=== PATIENT | female | born 1960 | race Caucasian/White ===

== ENCOUNTER 2023-03-08 18:20 | Inpatient (IN) | payer OTHER ==
--- NOTE | 2023-03-08 19:21 | ED ---
Altered Mental Status HPI - General Chief Complaint: Altered Mental Status Stated Complaint: AMS Time Seen by Provider: 03/08/23 18:59 Source: patient, EMS Mode of arrival: EMS Limitations: altered mental status - History of Present Illness Initial Comments: 62-year-old female who does admit to have any history of bipolar disorder who is brought in by family after she was found stumbling around her house and demonstrated confusion. She apparently taken a combination of tramadol along with Ambien around 12 noon today and this occurred shortly thereafter. Upon arrival here the patient was more cogent and awake. He does admit that she has had thoughts of hurting herself. She states she has been in [place] from [place] she had an irregular house because of black mold. She states she takes a tramadol because of chronic pain. She did state that she took the medications at 12 noon hoping she can awake up as a different person tomorrow. She also asked if there was treatment facility in the area for her addiction included tramadol Ambien sugar and salt MD Complaint: altered mental status - Related Data Allergies Allergy/AdvReac Type Severity Reaction Status Date / Time diphenhydramine Allergy Hallucinati Verified 03/08/23 19:21 [From Benadryl] ons Review of Systems ROS Statement: Those systems with pertinent positive or pertinent negative responses have been documented in the HPI. ROS Other: All systems not noted in ROS Statement are negative. 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 Limitations: altered mental status General appearance: alert, in no apparent distress Head exam: Present: atraumatic, normocephalic, normal inspection Eye exam: Present: normal appearance, PERRL, EOMI. Absent: scleral icterus, conjunctival injection, periorbital swelling ENT exam: Present: normal exam, mucous membranes moist Neck exam: Present: normal inspection. Absent: tenderness, meningismus, ly mphadenopathy Respiratory exam: Present: normal lung sounds bilaterally. Absent: respiratory distress, wheezes, rales, rhonchi, stridor Cardiovascular Exam: Present: regular rate, normal rhythm, normal heart sounds. Absent: systolic murmur, diastolic murmur, rubs, gallop, clicks GI/Abdominal exam: Present: soft, normal bowel sounds. Absent: distended, tenderness, guarding, rebound, rigid Extremities exam: Present: normal inspection, full ROM, normal capillary refill. Absent: tenderness, pedal edema, joint swelling, calf tenderness Back exam: Present: normal inspection Neurological exam: Present: alert, oriented X3, CN II-XII intact Psychiatric exam: Present: depressed, flat affect Skin exam: Present: warm, dry, intact, normal color. Absent: rash Course Vital Signs 03/08/23 18:24 Temperature 97.2 F L Pulse Rate 104 H Respiratory 18 Rate Blood Pressure 139/71 O2 Sat by Pulse 98 Oximetry - Reevaluation(s) Reevaluation #1: 03/08/23 20:13 The patient's care will be endorsed to Dr. Hamlin at our shift change Medical Decision Making - Lab Data Lab Results 03/08/23 Range/Units 19:32 Coronavirus (PCR) Not Detected (Not Detectd) Disposition Referrals: None,Stated [Primary Care Provider] - 1-2 days
[2023-03-08 20:02] LABS: ALT 30 U/L (4-34); AST 40 U/L (14-36); African American GFR (CKD) >90 (>60 ml/min/1.73 sqM); Albumin 3.9 g/dL (3.5-5.0); Alkaline Phosphatase 69 U/L (38-126); Anion Gap 9 mmol/L; Blood Urea Nitrogen 12 mg/dL (7-17); C Reactive Protein <0.5 mg/dL (<1.0); Calcium 8.6 mg/dL (8.4-10.2); Carbon Dioxide 21 mmol/L (22-30); Chloride 107 mmol/L (98-107); Creatine Kinase 69 U/L (30-135); Magnesium 1.8 mg/dL (1.6-2.3); Non-African American GFR(CKD) >90 (>60 ml/min/1.73 sqM); Potassium 3.6 mmol/L (3.5-5.1); Sodium 137 mmol/L (137-145); Total Bilirubin 0.8 mg/dL (0.2-1.3); Total Protein 6.7 g/dL (6.3-8.2)
[2023-03-08 20:23] LABS: Glucose 114 mg/dL (74-99)
[2023-03-08 21:24] LABS: Amphetamine Screen,Urine Not Detected (NotDetected); Barbiturate Screen,Urine Not Detected (NotDetected); Benzodiazepines Screen,Urine Not Detected (NotDetected); Cocaine Screen,Urine Not Detected (NotDetected); Methadone Screen, Urine Not Detected (NotDetected); Opiate Screen,Urine Not Detected (NotDetected); Oxycodone Screen, Urine Not Detected (NotDetected); Phencyclidine Screen,Urine Not Detected (NotDetected); Tricyclic Antidepressant,Urine Not Detected (NotDetected); Urn Cannabinoid Scrn Detected (NotDetected)
[2023-03-08 22:31] LABS: Basophils % (A) 0 %; Eosinophils # (A) 0.1 k/uL (0-0.7); Eosinophils % (A) 1 %; HCT 37.1 % (34.0-46.0); HGB 12.2 gm/dL (11.4-16.0); Lymphocytes % (A) 20 %; MCH 29.5 pg (25.0-35.0); MCHC 32.9 g/dL (31.0-37.0); MCV 89.7 fL (80.0-100.0); Mean Platelet Volume 7.6; Monocytes # (A) 0.2 k/uL (0-1.0); Monocytes % (A) 3 %; Neutrophils # (A) 3.6 k/uL (1.3-7.7); Neutrophils % (A) 74 %; Platelet Count 166 k/uL (150-450); RBC 4.14 m/uL (3.80-5.40); RDW 14.3 % (11.5-15.5); WBC 4.8 k/uL (3.8-10.6)
[2023-03-09] MEDS ORDERED: LORazepam 2 MG/ML INJ IV PRN
[2023-03-09] MEDS ORDERED: ACETAMINOPHEN TAB 325 MG TAB ONE (02:04)
[2023-03-09] MEDS ORDERED: LORazepam 1 MG TAB PO PRN ×2 (05:26→05:41)
[2023-03-09] MEDS ORDERED: ACETAMINOPHEN TAB 325 MG TAB PO PRN (05:26)
[2023-03-09] MEDS ORDERED: LORazepam 2 MG/ML INJ IM PRN ×2 (05:26)
[2023-03-09] MEDS ORDERED: HALOPERIDOL LACTATE 5 MG/ML 1 ML VIAL IM PRN ×2 (05:26)
[2023-03-09] MEDS ORDERED: IBUPROFEN 600 MG TAB PO PRN (05:26)
[2023-03-09] MEDS ORDERED: MAGNESIUM HYDROXIDE 2,400 MG/30 ML CUP PO PRN (05:26)
[2023-03-09] MEDS ORDERED: MAG HYDROX/AL HYDROX/SIMETH 30 ML CUP PO PRN (05:26)
[2023-03-09] MEDS ORDERED: haloperidoL 5 MG TAB PO PRN ×2 (05:29)
[2023-03-09] MEDS ORDERED: metFORMIN 500 MG TAB PO SCH (05:30)
[2023-03-09] MEDS ORDERED: ONDANSETRON 4 MG TAB PO PRN (05:30)
[2023-03-09] MEDS ORDERED: traMADol 50 MG TAB PO PRN (05:34)
[2023-03-09 06:18] VITALS: TEMP 96.8
[2023-03-09] MEDS ORDERED: NICOTINE 14MG/24HR PATCH TRANSDERM SCH (09:00)
[2023-03-09] MEDS: THYROID, PORK 30 MG TAB PO SCH (09:05)
--- NOTE | 2023-03-09 11:54 | P.HP ---
Psychiatric H&P - . H&P Date: 03/09/23 History & Physical: Allergies Allergy/AdvReac Type Severity Reaction Status Date / Time diphenhydramine Allergy Hallucinati Verified 03/08/23 19:21 From Benadryl ons Vital Signs Temp 96.8 F L 03/09/23 06:16 Pulse 69 03/09/23 06:16 Resp 18 03/09/23 06:16 BP 177/89 03/09/23 06:16 Pulse Ox 98 03/09/23 06:16 FiO2 Intake & Output 03/08/23 03/09/23 03/09/23 18:59 06:59 18:59 Weight 65.771 kg 65.227 kg 65.227 kg Laboratory Last Values WBC 4.8 k/uL (3.8-10.6) 03/08/23 22:09 RBC 4.14 m/uL (3.80-5.40) 03/08/23 22:09 Hgb 12.2 gm/dL (11.4-16.0) 03/08/23 22:09 Hct 37.1 % (34.0-46.0) 03/08/23 22:09 MCV 89.7 fL (80.0-100.0) 03/08/23 22:09 MCH 29.5 pg (25.0-35.0) 03/08/23 22:09 MCHC 32.9 g/dL (31.0-37.0) 03/08/23 22:09 RDW 14.3 % (11.5-15.5) 03/08/23 22:09 Plt Count 166 k/uL (150-450) 03/08/23 22:09 MPV 7.6 03/08/23 22:09 Neutrophils % 74 % 03/08/23 22:09 Lymphocytes % 20 % 03/08/23 22:09 Monocytes % 3 % 03/08/23 22:09 Eosinophils % 1 % 03/08/23 22:09 Basophils % 0 % 03/08/23 22:09 Neutrophils # 3.6 k/uL (1.3-7.7) 03/08/23 22:09 Lymphocytes # 1.0 k/uL (1.0-4.8) 03/08/23 22:09 Monocytes # 0.2 k/uL (0-1.0) 03/08/23 22:09 Eosinophils # 0.1 k/uL (0-0.7) 03/08/23 22:09 Basophils # 0.0 k/uL (0-0.2) 03/08/23 22:09 Sodium 137 mmol/L (137-145) 03/08/23 19:32 Potassium 3.6 mmol/L (3.5-5.1) 03/08/23 19:32 Chloride 107 mmol/L (98-107) 03/08/23 19:32 Carbon Dioxide 21 mmol/L (22-30) L 03/08/23 19:32 Anion Gap 9 mmol/L 03/08/23 19:32 BUN 12 mg/dL (7-17) 03/08/23 19:32 Creatinine 0.67 mg/dL (0.52-1.04) 03/08/23 19:32 Est GFR (CKD-EPI)AfAm >90 (>60 ml/min/1.73 sqM) 03/08/23 19:32 Est GFR (CKD-EPI)NonAf >90 (>60 ml/min/1.73 sqM) 03/08/23 19:32 Glucose 114 mg/dL (74-99) H 03/08/23 19:32 Calcium 8.6 mg/dL (8.4-10.2) 03/08/23 19:32 Magnesium 1.8 mg/dL (1.6-2.3) 03/08/23 19:32 Total Bilirubin 0.8 mg/dL (0.2-1.3) 03/08/23 19:32 AST 40 U/L (14-36) H 03/08/23 19:32 ALT 30 U/L (4-34) 03/08/23 19:32 Alkaline Phosphatase 69 U/L (38-126) 03/08/23 19:32 Ammonia 10 umol/L (<30) 03/08/23 19:32 Creatine Kinase 69 U/L (30-135) 03/08/23 19:32 C-Reactive Protein <0.5 mg/dL (<1.0) 03/08/23 19:32 Total Protein 6.7 g/dL (6.3-8.2) 03/08/23 19:32 Albumin 3.9 g/dL (3.5-5.0) 03/08/23 19:32 Urine Opiates Screen Not Detected (NotDetected) 03/08/23 20:30 Ur Oxycodone Screen Not Detected (NotDetected) 03/08/23 20:30 Urine Methadone Screen Not Detected (NotDetected) 03/08/23 20:30 Ur Propoxyphene Screen Not Detected (NotDetected) 03/08/23 20:30 Ur Barbiturates Screen Not Detected (NotDetected) 03/08/23 20:30 U Tricyclic Antidepress Not Detected (NotDetected) 03/08/23 20:30 Ur Phencyclidine Scrn Not Detected (NotDetected) 03/08/23 20:30 Ur Amphetamines Screen Not Detected (NotDetected) 03/08/23 20:30 U Methamphetamines Scrn Not Detected (NotDetected) 03/08/23 20:30 U Benzodiazepines Scrn Not Detected (NotDetected) 03/08/23 20:30 Urine Cocaine Screen Not Detected (NotDetected) 03/08/23 20:30 U Marijuana (THC) Screen Detected (NotDetected) H 03/08/23 20:30 Coronavirus (PCR) Not Detected (Not Detectd) 03/08/23 19:32 03/09/23 11:18 IDENTIFYING DATA: Patient is a 62-year-old female, currently lives with her granddaughter in a house, she has 3 kids HPI: Patient presented to the hospital yesterday was brought in by her family as they were complaining the patient was stumbling around her house, confused. It was found out that patient had overdosed on Ambien and tramadol. Patient was also endorsing suicidal thoughts earlier. Patient apparently had moved recently from [place] to [place], due to "black mold" in her house. Her urine drug screen was positive for THC. Patient was seen today on the unit and admitted voluntarily last night, she was agreeable to speak to com writer in the office today. Patient was fairly pleasant during her conversation today. She claims that she was "hurting really badly in all my joints" and states that she wanted it to stop. She states that this is usually related to her consuming sugar. She states that when she doesn't consume sugar she feels a lot better and does not have any mood or joint issues. 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 She claims that she took 2 ambiens and one tramadol to help her sleep and states that she wanted to feel better the next day. She denies it being a suicide attempt. She states that she just wanted to sleep. She claims that she started to crave sugar since she realized that there was "black mold" in her old home in [place] while she was ripping up the carpet. She claims that she got "dementia after that" and states that she found it hard to concentrate on her work. She claimed that she is mainly been seeking holistic treatment on the [facility] for the black mold exposure. She states that her health problems are likely related to it. She states that her sleep has been on and off and has been taking Ambien, she also has a fair appetite. She claims that she is not looking to take medications and adamantly refused any at this time and mainly asked com writer if there is any "medications to help control my sugar intake". Vehicle Upholsterer explained the different medications that may be able to help her however no medications are indicated for helping sugar cravings. She is denying any paranoia at this time. She is denying any suicidal or homicidal ideations intent or plan. At this time patient denies any auditory or visual hallucinations. Patient denies any flight of ideas racing thoughts and increased in goal directed behavior. Patient admits to using no recreational drugs cigarettes or marijuana. PAST PSYCHIATRIC HISTORY: Patient states that she has no previous mental health history. Patient denies being on any psychiatric medications. Patient denies any previous psychiatric hospitalizations. Patient denies any psychiatric outpatient follow-up. He did claim that she is seeing several therapists in the past when she lived in [place]. She claims that she attempted to overdose on aspirin when she was a teenager and admitted today was "mostly for attention". 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 She claims that she was in a family that moved around a lot. She states that she completed high school and did some college. 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 She states that she has no legal history never been to half-way or detention. MENTAL STATUS EXAM: General Appearance: Patient appears to have a nose ring, wearing hospital gown, stated age is alert, directable, and attempts to cooperate. Patient appears to have fair hygiene and grooming. Behavior: Patient is seated without any agitated behavior. mildly bizarre at times. cooperative Speech: Patient's speech is fluent and nonpressured. Mood/Affect: Patient reports their mood is "ok now", affect is congruent Suicidality/Homicidality: Patient denies having any homicidal ideation intent or plan. Denies any suicidal ideations intent or plan Perceptions: Patient denies any visual hallucinations and denies any auditory hallucinations Though content/process: There is no evidence of any delusional thought content and thought process is linear and goal-directed. focused on her health and treatment of a "sugar addiction". Memory and concentration: AOX3, grossly intact for the purposes of this session. Can spell "WORLD" backwards Judgment and insight: poor STRENGTHS/WEAKNESSES: strength is that patient is resilient. Weakness is that patient has poor insight and refusing to take treamtent/meds. INTELLECT: average IMPRESSIONS: Adjustment disorder r/o schizotypal personality disorder vs delusional disorder PLAN: -Patient is admitted under voluntary status to MHU for stabilization of psychiatric symptoms and safety. Patient has not signed medication consent and is placed in patient's chart. -Medications : com writer discussed different options for medications/treamtnet and patient is refusing at this time and wants a more hollistic treatment and also help with her "sugar craving". There is not sufficient criteria for petitioning and certifying her at this time. -SW to reach out to grand daughter for further collateral and also safety check on home envt including guns/weapons. -Ativan and Haldol PRN for agitation/aggression -Internal Medicine consult to perform medical evaluation and physical. -NRT - not needed as patient does not smoke -SW on board for discharge planning. Encourage patient to participate in groups to work on coping skills. 03/09/23 11:41
[2023-03-09 13:04] LABS: Appearance,Urine Clear (Clear); Bilirubin,Urine Negative (Negative); Blood,Urine Negative (Negative); Color,Urine Colorless; Glucose,Urine (UA) Negative (Negative); Ketones,Urine Negative (Negative); Leukocyte Esterase,Urine Small (Negative); Nitrite,Urine Negative (Negative); PH, Urine 6.5 (5.0-8.0); Protein,Urine Negative (Negative); RBC,Urine <1 /hpf (0-5); Specific Gravity,Urine 1.002 (1.001-1.035); Urobilinogen,Urine <2.0 mg/dL (<2.0); WBC,Urine <1 /hpf (0-5)
--- NOTE | 2023-03-09 17:07 | P.CONS ---
History of Present Illness - Reason for Consult Consult date: 03/09/23 - History of Present Illness Patient is a 62-year-old female with past medical history of hypothyrodism, hypertension, prediabetes mellitus, dyslipidemia presenting to the ED for mental health concerns. He's been admitted to the mental health unit for further management of his symptoms. [facility] has been consulted for medical management of this patient. Patient reports previous exposure to black mold that led her to develop hypertension, Tami's thyroiditis, prediabetes mellitus, COPD and dyslipidemia. Her symptoms have gone away after she was taken away from that exposure. Patient has no complaints today. General: non toxic, no distress, appears at stated age Derm: warm, dry Head: atraumatic, normocephalic, symmetric Eyes: EOMI, no lid lag, anicteric sclera Cardiovascular: S1S2 reg, no murmur Lungs: CTA bilateral, no rhonchi, no rales , no accessory muscle use Ext: no gross muscle atrophy, no edema, no contractures Neuro: CN II-XI grossly intact, no focal neuro deficits Psych: Alert, oriented, appropriate affect Tami's thyroiditis Pre-diabetes mellitus Dyslipidemia Hypertension Elevated AST Based on my assessment of this patient, this patient meets a moderate complexity level of care. Patient has a chronic diagnosis of hypothyrodism, hypertension, prediabetes mellitus, dyslipidemia. Hypothyroidism: Restart Towner thyroid 120 mg PO QD. TSH ordered. Pre-DM: Follow hemoglobin A1c. HLD: Patient states that she takes cholestyramine 4 g PO BID. HTN: Patient states this is diet controlled. I have reviewed the following mergers and acquisitions consultant notes: I have reviewed the results of the following tests: CBC, CMP, UA, UDS, COVID 19. I have ordered the following tests: Agree with Hemoglobin A1c, lipid panel and TSH ordered by psychiatry. 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 History of Any Multi-Drug Resistant Organisms: None Reported Past Surgical History: Section, Orthopedic Surgery Past Psychological History: Anxiety, Bipolar, Depression Smoking Status: Never smoker Past Alcohol Use History: Rare Past Drug Use History: None Reported Medications and Allergies Home Medications Medication Instructions Recorded Confirmed Type Cephalexin [Keflex] 500 mg PO DIRECTED 03/08/23 03/08/23 History Cholestyramine/Aspartame 4 gm PO DAILY 03/08/23 03/08/23 History [Cholestyramine Light Packet] Estradiol Cream [Estrace Cream 1 applic VAGINAL HS 03/08/23 03/08/23 History 0.01%] Ondansetron [Zofran] 4 mg PO Q6H PRN 03/08/23 03/08/23 History Thyroid,Pork [Towner Thyroid] 120 mg PO DAILY 03/08/23 03/08/23 History Zolpidem [Ambien] 5 mg PO DIRECTED PRN 03/08/23 03/08/23 History Zolpidem [Ambien] 10 mg PO HS PRN 03/08/23 03/08/23 History metFORMIN HCL 500 mg PO DIRECTED 03/08/23 03/08/23 History traMADol HCL 50 mg PO DAILY 03/08/23 03/08/23 History Allergies Allergy/AdvReac Type Severity Reaction Status Date / Time diphenhydramine Allergy Hallucinati Verified 03/08/23 19:21 [From Geraldo] ons Physical Exam Vitals: Vital Signs Temp Pulse Pulse Resp BP BP Pulse Ox 03/09/23 06:16 96.8 F L 69 18 177/89 98 03/08/23 18:24 97.2 F L 104 H 18 139/71 98 Intake and Output 03/09/23 03/09/23 03/09/23 06:59 14:59 22:59 Other: Weight 65.227 kg 65.227 kg Results CBC & Chem 7: 03/08/23 22:09 03/08/23 19:32 Labs: Abnormal Lab Results - Last 24 Hours (Table) 03/08/23 03/08/23 03/09/23 Range/Units 19:32 20:30 11:00 Carbon Dioxide 21 L (22-30) mmol/L Glucose 114 H (74-99) mg/dL AST 40 H (14-36) U/L Ur Leukocyte Esterase Small H (Negative) U Marijuana (THC) Screen Detected H (NotDetected)
[2023-03-09] MEDS ORDERED: ESTRADIOL 0.1 MG/GM VAGINAL CREAM 42.5 GM TUBE VAGINAL SCH (21:00)
[2023-03-09] MEDS: CHOLESTYRAMINE (WITH SUGAR) 4 GM PACKET PO SCH (21:48)
[2023-03-10] MEDS: THYROID, PORK 30 MG TAB PO SCH (10:05)
--- NOTE | 2023-03-10 10:17 | P.DS ---
Providers Date of admission: 03/09/23 01:27 Expected date of discharge: 03/10/23 Attending physician: Anthony Leonard MD Consults: 03/09/23 05:26 Consult Physician Routine Consulting Provider: Rosa Abdalla Consult Reason/Comments: medical H& P Do you want consulting provider notified?: Yes Primary care physician: Stated None - Discharge Diagnosis(es) (1) Adjustment disorder Current Visit: Yes Status: Acute Priority: High Hospital Course: Admission HPI: Admission note was completed by life insurance underwriter "Patient is a 62-year-old female, currently lives with her granddaughter in a house, she has 3 kids. Patient presented to the hospital yesterday was brought in by her family as they were complaining the patient was stumbling around her house, confused. It was found out that patient had overdosed on Ambien and tramadol. Patient was also endorsing suicidal thoughts earlier. Patient apparently had moved recently from [place] to [place], due to "black mold" in her house. Her urine drug screen was positive for THC. Patient was seen today on the unit and admitted voluntarily last night, she was agreeable to speak to life insurance underwriter in the office today. Patient was fairly pleasant during her conversation today. She claims that she was "hurting really badly in all my joints" and states that she wanted it to stop. She states that this is usually related to her consuming sugar. She states that when she doesn't consume sugar she feels a lot better and does not have any mood or joint issues. 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 She claims that she took 2 ambiens and one tramadol to help her sleep and states that she wanted to feel better the next day. She denies it being a suicide attempt. She states that she just wanted to sleep. She claims that she started to crave sugar since she realized that there was "black mold" in her old home in [place] while she was ripping up the carpet. She claims that she got "dementia after that" and states that she found it hard to concentrate on her work. She claimed that she is mainly been seeking holistic treatment on the [facility] for the black mold exposure. She states that her health problems are likely related to it. She states that her sleep has been on and off and has been taking Ambien, she also has a fair appetite. She claims that she is not looking to take medications and adamantly refused any at this time and mainly asked life insurance underwriter if there is any "medications to help control my sugar intake". [employer] S[employer] S[employer] Developer explained the different medications that may be able to help her however no medications are indicated for helping sugar cravings. She is denying any paranoia at this time. She is denying any suicidal or homicidal ideations intent or plan. At this time patient denies any auditory or visual hallucinations. Patient denies any flight of ideas racing thoughts and increased in goal directed behavior. Patient admits to using no recreational drugs cigarettes or marijuana." Hospital course: Upon admission to the unit patient was directable and agreeable to commence treatment and signed adult voluntary form . Patient got along well with other patients on the unit and followed unit protocol, she did not exhibit any concerning behaviros or issues while on the unit and attempted to participate in groups and melieu. Patient was adamant about not starting medications and wanted to only seek therapy. patient did not have sufficient criteria to go ahead with involuntary process at this time. Patient spoke of her stressors and engaged in therapy both group and individual. Patient was also seen by medical team for history and physical exam. Throughout the course of the hospitalization patient gradually improved with regards to mood, anxiety, sleep and returned back to their baseline level of functioning. On the day of discharge patient denied any suicidal or homicidal ideations intent or plan denied any auditory or visual hallucinations. Patient endorsed wanting to live for her health and family. The patient denied any access to guns or weapons. Patient denied any paranoia and did not endorse any delusions. Patient does not have a significant history of substance abuse and was counseled on abstaining from all substances including alcohol and marijuana. Patient was also counseled on the medications and need for regular compliance and was encouraged to follow-up with their outpatient appointment for mental health and also for primary care. Prior to discharge a family meeting will be arranged by social worker school to answer any questions and ensure safety upon discharge. Mental status exam: General Appearance: Patient appears to be stated age is alert, pleasant, and cooperative. Patient is in no acute distress and has improved hygiene and grooming Behavior: Patient is calmly seated without any agitated behavior. Speech: Patient's speech is fluent and nonpressured. Mood/Affect: Patient reports their mood is "good", affect is congruent Suicidality/Homicidality: Patient denies having any suicidal or homicidal ideation intent or plan. Perceptions: Patient denies any auditory or visual hallucinations. Though content/process: There is no evidence of any delusional thought content and thought process is linear and goal-directed. more future oriented. emphasis on her pain, somatic sx and also "sugar addiction". Memory and concentration: AOX3, grossly intact for the purposes of this session. Can spell "WORLD" backwards correctly. Judgment and insight: improved with guarded prognosis Impression: Adjustment disorder Rule out schizotypal personality disorder versus delusional disorder? Plan: -Continue with discharge today as patient has improved and stabilized psychiatrically and is not currently an imminent threat to herself and/or others. Patient will remain at chronically elevated risk for harm to self and/or others due to her impulsivity. -Continue medications: Patient was adamant about not starting any psychotropic medications at this time and wanted to proceed with therapy only. we discussed the risks and drawbacks to this and patient wanted to avoid pharmacotherapy and preferred hollistic treatment instead -Patient was counseled on the need for follow-up at mental health and also primary care for medical issues. Patient verbalized understanding and agreed. -Social work to arrange for and conduct family meeting to ensure safety upon discharge and answer any questions/concerns and also to ensure a safe envt at home with no guns or weapons. Social work also to arrange for patients follow up appointments for psychiatric care along with follow up with primary care provider. -Patient counseled on abstaining from recreational drugs and marijuana and alcohol. Was informed/educated on the adverse effects on their physical and mental health. Patient verbally agreed and understood. -Patient was instructed to return to the hospital or seek immediate medical care if their psychiatric or medical symptoms do worsen or reoccur. Allergies Allergy/AdvReac Type Severity Reaction Status Date / Time diphenhydramine Allergy Hallucinati Verified 03/08/23 19:21 [From Benadryl] ons Laboratory Results WBC 4.8 k/uL (3.8-10.6) 03/08/23 22:09 RBC 4.14 m/uL (3.80-5.40) 03/08/23 22:09 Hgb 12.2 gm/dL (11.4-16.0) 03/08/23 22:09 Hct 37.1 % (34.0-46.0) 03/08/23 22:09 MCV 89.7 fL (80.0-100.0) 03/08/23 22:09 MCH 29.5 pg (25.0-35.0) 03/08/23 22:09 MCHC 32.9 g/dL (31.0-37.0) 03/08/23 22:09 RDW 14.3 % (11.5-15.5) 03/08/23 22:09 Plt Count 166 k/uL (150-450) 03/08/23 22:09 MPV 7.6 03/08/23 22:09 Neutrophils % 74 % 03/08/23 22:09 Lymphocytes % 20 % 03/08/23 22:09 Monocytes % 3 % 03/08/23 22:09 Eosinophils % 1 % 03/08/23 22:09 Basophils % 0 % 03/08/23 22:09 Neutrophils # 3.6 k/uL (1.3-7.7) 03/08/23 22:09 Lymphocytes # 1.0 k/uL (1.0-4.8) 03/08/23 22:09 Monocytes # 0.2 k/uL (0-1.0) 03/08/23 22:09 Eosinophils # 0.1 k/uL (0-0.7) 03/08/23 22:09 Basophils # 0.0 k/uL (0-0.2) 03/08/23 22:09 Sodium 137 mmol/L (137-145) 03/08/23 19:32 Potassium 3.6 mmol/L (3.5-5.1) 03/08/23 19:32 Chloride 107 mmol/L (98-107) 03/08/23 19:32 Carbon Dioxide 21 mmol/L (22-30) L 03/08/23 19:32 Anion Gap 9 mmol/L 03/08/23 19:32 BUN 12 mg/dL (7-17) 03/08/23 19:32 Creatinine 0.67 mg/dL (0.52-1.04) 03/08/23 19:32 Est GFR (CKD-EPI)AfAm >90 (>60 ml/min/1.73 sqM) 03/08/23 19:32 Est GFR (CKD-EPI)NonAf >90 (>60 ml/min/1.73 sqM) 03/08/23 19:32 Glucose 114 mg/dL (74-99) H 03/08/23 19:32 Calcium 8.6 mg/dL (8.4-10.2) 03/08/23 19:32 Magnesium 1.8 mg/dL (1.6-2.3) 03/08/23 19:32 Total Bilirubin 0.8 mg/dL (0.2-1.3) 03/08/23 19:32 AST 40 U/L (14-36) H 03/08/23 19:32 ALT 30 U/L (4-34) 03/08/23 19:32 Alkaline Phosphatase 69 U/L (38-126) 03/08/23 19:32 Ammonia 10 umol/L (<30) 03/08/23 19:32 Creatine Kinase 69 U/L (30-135) 03/08/23 19:32 C-Reactive Protein <0.5 mg/dL (<1.0) 03/08/23 19:32 Total Protein 6.7 g/dL (6.3-8.2) 03/08/23 19:32 Albumin 3.9 g/dL (3.5-5.0) 03/08/23 19:32 Urine Color Colorless 03/09/23 11:00 Urine Appearance Clear (Clear) 03/09/23 11:00 Urine pH 6.5 (5.0-8.0) 03/09/23 11:00 Ur Specific Ramsay 1.002 (1.001-1.035) 03/09/23 11:00 Urine Protein Negative (Negative) 03/09/23 11:00 Urine Glucose (UA) Negative (Negative) 03/09/23 11:00 Urine Ketones Negative (Negative) 03/09/23 11:00 Urine Blood Negative (Negative) 03/09/23 11:00 Urine Nitrite Negative (Negative) 03/09/23 11:00 Urine Bilirubin Negative (Negative) 03/09/23 11:00 Urine Urobilinogen <2.0 mg/dL (<2.0) 03/09/23 11:00 Ur Leukocyte Esterase Small (Negative) H 03/09/23 11:00 Urine RBC <1 /hpf (0-5) 03/09/23 11:00 Urine WBC <1 /hpf (0-5) 03/09/23 11:00 Urine Opiates Screen Not Detected (NotDetected) 03/08/23 20:30 Ur Oxycodone Screen Not Detected (NotDetected) 03/08/23 20:30 Urine Methadone Screen Not Detected (NotDetected) 03/08/23 20:30 Ur Propoxyphene Screen Not Detected (NotDetected) 03/08/23 20:30 Ur Barbiturates Screen Not Detected (NotDetected) 03/08/23 20:30 U Tricyclic Antidepress Not Detected (NotDetected) 03/08/23 20:30 Ur Phencyclidine Scrn Not Detected (NotDetected) 03/08/23 20:30 Ur Amphetamines Screen Not Detected (NotDetected) 03/08/23 20:30 U Methamphetamines Scrn Not Detected (NotDetected) 03/08/23 20:30 U Benzodiazepines Scrn Not Detected (NotDetected) 03/08/23 20:30 Urine Cocaine Screen Not Detected (NotDetected) 03/08/23 20:30 U Marijuana (THC) Screen Detected (NotDetected) H 03/08/23 20:30 Coronavirus (PCR) Not Detected (Not Detectd) 03/08/23 19:32 Vital Signs Temp 96.8 F L 03/09/23 06:16 Pulse 69 03/09/23 06:16 Resp 18 03/09/23 06:16 BP 177/89 03/09/23 06:16 Pulse Ox 98 03/09/23 06:16 FiO2 Intake & Output 03/09/23 03/10/23 03/10/23 18:59 06:59 18:59 Weight 65.227 kg Patient Condition at Discharge: Stable Plan - Discharge Summary Discharge Rx Participant: Yes New Discharge Prescriptions: Continue Thyroid,Pork [[place] Thyroid] 120 mg PO DAILY 30 Days #30 traMADol HCL 50 mg PO DAILY Cholestyramine/Aspartame [Cholestyramine Light Packet] 4 gm PO DAILY 30 Days #30 packet Discontinued Zolpidem [Ambien] 5 mg PO DIRECTED PRN PRN Reason: Insomnia Ondansetron [Zofran] 4 mg PO Q6H PRN PRN Reason: Nausea metFORMIN HCL 500 mg PO DIRECTED Zolpidem [Ambien] 10 mg PO HS PRN PRN Reason: Insomnia Cephalexin [Keflex] 500 mg PO DIRECTED Discharge Medication List traMADol HCL 50 mg PO DAILY 03/08/23 [History] Cholestyramine/Aspartame [Cholestyramine Light Packet] 4 gm PO DAILY 30 Days #30 packet 03/10/23 [Rx] Thyroid,Pork [[place] Thyroid] 120 mg PO DAILY 30 Days #30 03/10/23 [Rx] Follow up Appointment(s)/Referral(s): [facility] [NON-STAFF] - 1 Week Patient Instructions/Handouts: Mood Disorders (DC) Activity/Diet/Wound Care/Special Instructions: Avoid the use of street drugs and alcohol. Take all medications as prescribed. When you are in need of refills on your medications, please contact your medical provider and/or outpatient psychiatrist to have this done. Please go to scheduled outpatient appointments for aftercare treatment. If symptoms return or become worse, call the crisis line at and/or go to the nearest emergency room for evaluation. Discharge Disposition: HOME SELF-CARE
[2023-03-10 10:43] VITALS: BP 136/80; PULSE 72; RESP 20
[2023-03-10] MEDS: CHOLESTYRAMINE (WITH SUGAR) 4 GM PACKET PO SCH (10:43)
[2023-03-10 16:43] LABS: Chol/HDL Ratio 3.33 Ratio; LDL Cholesterol,Calculated 215.5 mg/dL (0.0-131.0); VLDL Calculation 17.46 mg/dL (5.00-40.00)
== END 2023-03-10 17:38 | disposition home or self-care (01) | DRG 882 ==
LOC: EC 18:20 → 3MHU 03-09 01:27
PROVIDERS: ADMIT Psychiatry & Neurology Psychiatry; ATTEND Psychiatry & Neurology Psychiatry
DX: F43.22 Adjustment disorder with anxiety (principal); T42.6X2A Poisoning by other antiepileptic and sedative-hypnotic drugs, intentional self-harm, initial encounter; Z77.120 Contact with and (suspected) exposure to mold (toxic); Z79.84 Long term (current) use of oral hypoglycemic drugs; Z87.891 Personal history of nicotine dependence; R73.03 Prediabetes; E78.5 Hyperlipidemia, unspecified; E06.3 Autoimmune thyroiditis; J44.9 Chronic obstructive pulmonary disease, unspecified; I10 Essential (primary) hypertension; G89.29 Other chronic pain; F31.9 Bipolar disorder, unspecified; Z28.310 Unvaccinated for COVID-19; Z28.21 Immunization not carried out because of patient refusal; Z79.899 Other long term (current) drug therapy
CPT/HCPCS: 36415; 80053; 80061; 80076; 80306; 81001; 82075; 82140; 82550; 83036; 83735; 84443; 85025; 86140; 87635

== ENCOUNTER → 2024-07-19 | Outpatient (CLI) | payer MEDICARE, OTHER ==
[2024-07-19 10:56] VITALS: BP 147/84; PULSE 94; RESP 16
--- NOTE | 2024-07-23 07:40 | P.PAINPG ---
Objective - Vital Signs Vital signs: Intake & Output 07/18/24 07/19/24 07/19/24 18:59 06:59 18:59 Weight 53.07 kg PQRS Measure Charge Sheet Comment: HISTORY OF PRESENT ILLNESS: A 64 yr old female as a referral from Dr Munguia presents today w severe and chronic lower abdominal pain secondary to ovarian CA for evaluation. Pt states pain level is provoked at 6 /10 in intensity, constant, localized in the lower quadrants of the abdomen, sore in character w occasional shooting pain towards the pelvis. Pain is provoked by sugar/ carbohydrate intake. Pain is alleviated by physician guided home stretches daily since May 2024, heat, ice, medications (Dilaudid, Tramadol), repositioning and rest . PMH: Grade III-IV Ovarian CA, OA, Deepak's Thyroiditis, MDD/ Anxiety/ Bipolar PSH: C- Section, Orthopedic Surgery SH: Former tobacco user, Rare ETOH use, Hx Cannabis use FH: Non contributory All: See list Meds: See list REVIEW OF ORGAN SYSTEMS: CONSTITUTIONAL: No fevers or chills. No recent weight loss. NEUROLOGICAL: + numbness and tingling along the distal extremities. No seizure disorders or headaches. MUSCULOSKELETAL: + pain PSYCHIATRIC: Denies current depression or suicidal thoughts. Physical Examinations : Constitutional : Cooperative , not in acute distress . Neurologic : Cranial nerve II to XII intact. No focal neurological deficits. Psychiatric : alert & oriented x 3. Matching mood & appropriate affect. Judgment & insight intact. Musculoskeletal : +RLQ/ LLQ TTP Cervical Spine Motor strength in the deltoid and biceps: Normal right side. Normal Left side Motor strength biceps and the wrist extensors: Normal right side . Normal left side Motor strength in the triceps muscle: Normal right side. Normal left side Deep tendon reflexes: Normal at the biceps. Normal at Brachioradialis. Normal at triceps Vertebral body tenderness to deep palpation over Cervical facet loading test: positive bilaterally Spurling test: positive bilaterally Neck distraction test: positive bilaterally Abdulaziz sign: positive bilaterally Lumbar spine Motor strength lower extremities ,thigh and legs 5/5 Right side , 5/5 Left side Deep tendon reflexes : Normal Knee Jerk. Normal Ankle Jerk Vertebral body tenderness over Ortiz Test positive Lumbar facet Loading Test: positive Right / positive Left Range of motion of the lumbar spine Flexion 30 degrees, extension 10 degrees Straight Leg Raise test: Left/ Right positive at degrees Van test: positive right / positive left. Severe tenderness over the Sacroiliac joint on the Right / Left sides Gaenslen test: positive bilaterally Seated flexion test: positive bilaterally. 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 Opiate/ narcotic agreement signed 07/19/24. Dilaudid 2mg #90 w 1 RF. Use, side effects, adverse reactions, safe storage discussed. All questions answered. I have spent greater than 30 minutes on patient care today. Dr Goodwin was available by phone for the evaluation of this patient. The time was used to review the medical records including relevant urine studies and Prescription history (MAPs), review of the available imaging, evaluation and examination of the patient, coordination of care with the medical staff and if applicable referring physicians, as well as creation of the medical record - Pain Location Generalized Non-Pharmacological Interventions: Heat Pharmacological Interventions: Scheduled Medication Home Medications: Ambulatory Orders traMADol HCL 50 mg PO DAILY 03/08/23 Cholestyramine/Aspartame [Cholestyramine Light Packet] 4 gm PO DAILY 30 Days #30 packet 03/10/23 Thyroid,Pork [P[place] Thyroid] 120 mg PO DAILY 30 Days #30 03/10/23 HYDROmorphone [Dilaudid] 07/19/24 Controlled Substance Measures - Controlled Substance Measures Is patient prescribed a controlled substance at discharge?: Yes When asked, does pt state using other controlled substances?: Yes If prescribed controlled substance>3 days was MAPS reviewed?: Yes If Rx opioid, was Start Talking consent form obtained?: Yes Was information provided regarding opioid addiction?: Yes
== END ==
LOC: PNWHC3 10:14
PROVIDERS: ATTEND Specialist
DX: C56.9 Malignant neoplasm of unspecified ovary (principal); Z87.891 Personal history of nicotine dependence; Z88.8 Allergy status to other drugs, medicaments and biological substances
CPT/HCPCS: 99202

== ENCOUNTER → 2024-09-10 | Outpatient (CLI) | payer MEDICARE, OTHER ==
[2024-09-10 14:32] VITALS: BP 114/75; PULSE 85; RESP 16; TEMP 97.1
--- NOTE | 2024-09-10 14:55 | P.PAINPG ---
PQRS Measure Charge Sheet Comment: HISTORY OF PRESENT ILLNESS: A 64 yr old female w "nephew" at side presents today w severe and chronic lower abdominal pain secondary to ovarian CA for medication refills. Pt states pain level is provoked at 8 /10 in intensity, constant, localized in the lower quadrants of the abdomen, sharp in character w occasional shooting pain towards the pelvis. Pain is provoked by movement, lack of Vitamin C infusions, increasing ascites and LE edema. Pain is alleviated by physician guided home stretches daily since May 2024, heat, ice, medications, repositioning and rest . Interventional procedures include Medications include Dilaudid 2mg , Tramadol REVIEW OF ORGAN SYSTEMS: CONSTITUTIONAL: No fevers or chills. No recent weight loss. +R abd drain tube in place NEUROLOGICAL: + numbness and tingling along the distal extremities. No seizure disorders or headaches. MUSCULOSKELETAL: + pain PSYCHIATRIC: Denies current depression or suicidal thoughts. Physical Examinations : Constitutional : Cooperative , not in acute distress . 3+ BLE Edema Neurologic : Cranial nerve II to XII intact. No focal neurological deficits. Psychiatric : alert & oriented x 3. Matching mood & appropriate affect. Judgment & insight intact. Musculoskeletal : +RLQ/ LLQ TTP Cervical Spine Motor strength in the deltoid and biceps: Normal right side. Normal Left side Motor strength biceps and the wrist extensors: Normal right side . Normal left side Motor strength in the triceps muscle: Normal right side. Normal left side Deep tendon reflexes: Normal at the biceps. Normal at Brachioradialis. Normal at triceps Vertebral body tenderness to deep palpation over Cervical facet loading test: positive bilaterally Spurling test: positive bilaterally Neck distraction test: positive bilaterally Abdulaziz sign: positive bilaterally Lumbar spine Motor strength lower extremities ,thigh and legs 5/5 Right side , 5/5 Left side Deep tendon reflexes : Normal Knee Jerk. Normal Ankle Jerk Vertebral body tenderness over Ortiz Test positive Lumbar facet Loading Test: positive Right / positive Left Range of motion of the lumbar spine Flexion 30 degrees, extension 10 degrees Straight Leg Raise test: Left/ Right positive at degrees Van test: positive right / positive left. Severe tenderness over the Sacroiliac joint on the Right / Left sides Gaenslen test: positive bilaterally Seated flexion test: positive bilaterally. 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 New opiate/ narcotic agreement signed 09/10/24. UDS collected 09/10/24. Dilaudid 2mg #180 w 1 RF. Add Narcan and discussed it's use w nephew. Use, side effects, adverse reactions, safe storage discussed. All questions answered. I have spent greater than 30 minutes on patient care today. Dr Goodwin was available by phone for the evaluation of this patient. The time was used to review the medical records including relevant urine studies and Prescription history (MAPs), review of the available imaging, evaluation and examination of the patient, coordination of care with the medical staff and [facility], as well as creation of the medical record PQRS Narrative: Hx Alcohol Use (MH) No Home Medications: Ambulatory Orders traMADol HCL 50 mg PO DAILY 03/08/23 Cholestyramine/Aspartame [Cholestyramine Light Packet] 4 gm PO DAILY 30 Days #30 packet 03/10/23 Thyroid,Pork [[place] Thyroid] 120 mg PO DAILY 30 Days #30 03/10/23 HYDROmorphone [Dilaudid] 07/19/24 HYDROmorphone [Dilaudid] 2 mg PO TID PRN 30 Days #180 tab 09/10/24 HYDROmorphone [Dilaudid] 2 mg PO TID PRN 30 Days #180 tab 09/10/24 Naloxone HCl [Narcan] 4 mg NASAL ONCE PRN 365 Days #1 each 09/10/24 Controlled Substance Measures - Controlled Substance Measures Is patient prescribed a controlled substance at discharge?: Yes When asked, does pt state using other controlled substances?: Yes If prescribed controlled substance>3 days was MAPS reviewed?: Yes If Rx opioid, was Start Talking consent form obtained?: Yes Was information provided regarding opioid addiction?: Yes
== END ==
LOC: PNWHC3 13:51
PROVIDERS: ATTEND Specialist
DX: C56.9 Malignant neoplasm of unspecified ovary (principal); Z88.8 Allergy status to other drugs, medicaments and biological substances
CPT/HCPCS: 80307; 99212

== ENCOUNTER → 2024-11-12 | Outpatient (CLI) | payer MEDICARE, OTHER ==
[2024-11-12 14:55] VITALS: BP 131/85; PULSE 104; RESP 16; TEMP 96.9
--- NOTE | 2024-11-12 15:35 | P.PAINPG ---
PQRS Measure Charge Sheet Comment: HISTORY OF PRESENT ILLNESS: A 64 yr old female presents today w severe and chronic lower abdominal pain secondary to ovarian CA for medication refills. Pt states pain level is provoked at 8 /10 in intensity, constant, localized in the lower quadrants of the abdomen, sharp in character w occasional shooting pain towards the pelvis. Pain is provoked by movement, lack of Vitamin C infusions (for 3 months), increasing ascites and LE edema. She will have a PET scan to determine if there is lymphatic spread due to immense LE swelling. Pain is alleviated by physician guided home stretches daily since May 2024, heat, ice, medications, use of a walker for ambulatory assistance, repositioning and rest . Interventional procedures include Medications include Dilaudid 2mg , Tramadol REVIEW OF ORGAN SYSTEMS: CONSTITUTIONAL: No fevers or chills. No recent weight loss. +R abd drain tube in place NEUROLOGICAL: + numbness and tingling along the distal extremities. No seizure disorders or headaches. MUSCULOSKELETAL: + pain PSYCHIATRIC: Denies current depression or suicidal thoughts. Physical Examinations : Constitutional : Cooperative , not in acute distress . 3+ BLE Edema Neurologic : Cranial nerve II to XII intact. No focal neurological deficits. Psychiatric : alert & oriented x 3. Matching mood & appropriate affect. Judgment & insight intact. Musculoskeletal : +RLQ/ LLQ TTP Cervical Spine Motor strength in the deltoid and biceps: Normal right side. Normal Left side Motor strength biceps and the wrist extensors: Normal right side . Normal left side Motor strength in the triceps muscle: Normal right side. Normal left side Deep tendon reflexes: Normal at the biceps. Normal at Brachioradialis. Normal at triceps Vertebral body tenderness to deep palpation over Cervical facet loading test: positive bilaterally Spurling test: positive bilaterally Neck distraction test: positive bilaterally Abdulaziz sign: positive bilaterally Lumbar spine Motor strength lower extremities ,thigh and legs 5/5 Right side , 5/5 Left side Deep tendon reflexes : Normal Knee Jerk. Normal Ankle Jerk Vertebral body tenderness over Ortiz Test positive Lumbar facet Loading Test: positive Right / positive Left Range of motion of the lumbar spine Flexion 30 degrees, extension 10 degrees Straight Leg Raise test: Left/ Right positive at degrees Van test: positive right / positive left. Severe tenderness over the Sacroiliac joint on the Right / Left sides Gaenslen test: positive bilaterally Seated flexion test: positive bilaterally. 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 Opiate/ narcotic agreement signed 09/10/24. UDS from 09/10/24 +Opiates and ETOH metabolites. Will recheck UDS 11/12/24. Dilaudid 2mg #180 w 1 RF. Script for lymphatic drainage provided C56, I89.0 . Narcan already added, it's use discussed again. Use, side effects, adverse reactions, safe storage discussed. All questions answered. I have spent greater than 30 minutes on patient care today. Dr Goodwin was available by phone for the evaluation of this patient. The time was used to review the medical records including relevant urine studies and Prescription history (MAPs), review of the available imaging, evaluation and examination of the patient, coordination of care with the medical staff and if applicable referring physicians, as well as creation of the medical record - Pain Location Generalized Non-Pharmacological Interventions: Heat, Ice PQRS Narrative: Hx Alcohol Use (MH) No Home Medications: Ambulatory Orders traMADol HCL 50 mg PO BID PRN 03/08/23 Thyroid,Pork [[place] Thyroid] 120 mg PO DAILY 30 Days #30 03/10/23 Famotidine [Pepcid] 20 mg PO DAILY 10/19/24 Furosemide [Lasix] 20 mg PO DAILY 10/19/24 Levothyroxine Sodium [Synthroid] 75 mcg PO DAILY 10/19/24 Spironolactone [Aldactone] 25 mg PO DAILY 10/19/24 Calcium Carbonate [Tums] 1,000 mg PO TID PRN tab 10/23/24 Lactulose [Cephulac] 20 gm PO BID #360 ml 10/23/24 HYDROmorphone [Dilaudid] 4 mg PO TID PRN 30 Days #180 tab 11/12/24 HYDROmorphone [Dilaudid] 4 mg PO TID PRN 30 Days #180 tab 11/12/24 Controlled Substance Measures - Controlled Substance Measures Is patient prescribed a controlled substance at discharge?: Yes When asked, does pt state using other controlled substances?: Yes If prescribed controlled substance>3 days was MAPS reviewed?: Yes
== END ==
LOC: PNWHC3 14:02
PROVIDERS: ATTEND Specialist
DX: C56.9 Malignant neoplasm of unspecified ovary (principal); I89.0 Lymphedema, not elsewhere classified; Z88.9 Allergy status to unspecified drugs, medicaments and biological substances; Z88.8 Allergy status to other drugs, medicaments and biological substances
CPT/HCPCS: 99212

== ENCOUNTER 2024-11-28 21:07 | Inpatient (IN) | payer MEDICARE, OTHER ==
--- NOTE | 2024-11-28 21:29 | ED ---
General Adult HPI - General Chief complaint: Abdominal Pain Stated complaint: Abdominal Pain Time Seen by Provider: 11/28/24 21:08 Source: patient - History of Present Illness Initial comments: Patient is a 64-year-old past medical past medical history ovarian cancer presenting today for abdominal pain. Patient states she had a drain for ascites placed August 08 at [facility]. Earlier this afternoon she began having sharp and aching abdominal pain in her lower abdomen. States she a lso noticed some discharge around her drain site this morning. Endorses nausea, no emesis. No fevers or chills but notes hot flashes. States this morning she had a oily bowel movement at 1 AM. States it was dark but not black or bloody. Endorses mild dysuria denies hematuria. Endorses vaginal bleeding and discharge that has been ongoing during her treatment of CA. - Related Data Home Medications Medication Instructions Recorded Confirmed traMADol HCL 50 mg PO TID 03/08/23 11/29/24 Famotidine [Pepcid] 20 mg PO DAILY 10/19/24 11/29/24 Furosemide [Lasix] 20 mg PO BID PRN 10/19/24 11/29/24 Spironolactone [Aldactone] 25 mg PO DAILY 10/19/24 11/29/24 Calcium Carbonate [Tums] 500 mg PO DAILY 11/29/24 11/29/24 Cholecalciferol (Vitamin D3) 1,250 mcg PO Q7D 11/29/24 11/29/24 [Vitamin D3 (1250 Mcg = 50,000 Iu)] Cyanocobalamin [Vitamin B-12 1,000 mcg SQ Q7D 11/29/24 11/29/24 Injection] HYDROmorphone [Dilaudid] 4 mg PO TID 11/29/24 11/29/24 Levothyroxine Sodium [Synthroid] 88 mcg PO DAILY 11/29/24 11/29/24 modafiniL [Provigil] 200 mg PO DAILY 11/29/24 11/29/24 Previous Rx's Medication Instructions Recorded Thyroid,Pork [[place] Thyroid] 120 mg PO DAILY 30 Days #30 03/10/23 Lactulose [Cephulac] 20 gm PO BID #360 ml 10/23/24 Allergies Allergy/AdvReac Type Severity Reaction Status Date / Time diphenhydramine Allergy anxiety & Verified 11/29/24 11:44 [From Benadryl] rash zolpidem [From Ambien] AdvReac Hallucinati Verified 11/29/24 11:44 ons Review of Systems ROS Statement: Those systems with pertinent positive or pertinent negative responses have been documented in the HPI. ROS Other: All systems not noted in ROS Statement are negative. Past Medical History Past Medical History: Cancer Additional Past Medical History / Comment(s): tami's disease stage 4 ovarian cancer. History of Any Multi-Drug Resistant Organisms: None Reported Past Surgical History: Section, Cholecystectomy, Orthopedic Surgery, Tonsillectomy Additional Past Surgical History / Comment(s): two tubal , wrist surgery Past Psychological History: Anxiety, Bipolar, Depression Smoking Status: Never smoker Past Alcohol Use History: None Reported Past Drug Use History: None Reported - Past Family History Father Family Medical History: COPD Additional Family Medical History / Comment(s): emphysema, at 82yrs Mother Family Medical History: Cancer, Diabetes Mellitus Additional Family Medical History / Comment(s): breast cancer, at 80yrs from dehydration per patient. General Exam - General Exam Comments Initial Comments: PE: CONSTITUTIONAL: No apparent distress, well appearing SKIN: Warm, dry, no jaundice, hives or petechiae EYES: Pupils are equally round, extraocular movements intact without nystagmus, clear conjunctiva, non-icteric sclera HENT: Normocephalic, atraumatic, moist mucus membranes, oropharynx clear without exudates NECK: , Full range of motion, normal appearance PULMONARY: Clear to auscultation without wheezes, rhonchi, or rales, normal excursion, no accessory muscle use and no stridor CARDIOVASCULAR: Regular rate, rhythm, normal S1 and S2. No appreciated murmurs, rubs or gallops. Strong radial pulses with intact distal perfusion. 2+ pitting edema extending up to thighs GASTROINTESTINAL: Firm, predominantly in the right lower quadrant, active bowel sounds throughout, diffuse tenderness however worse in the right lower quadrant than left, mildly distended, palpable mass in the right lower quadrant, no rebound, guarding throughout GENITOURINARY: MUSCULOSKELETAL: Extremities have no gross deformity NEUROLOGIC:_a/o x 3, GCS 15, normal mentation and speech. Moves all extremities x 4 without motor or sensory deficit PSYCHIATRIC:_normal mood and affect, thought process is clear and linear Course Vital Signs 11/28/24 11/28/24 11/29/24 21:08 22:33 00:00 Temperature 97.9 F Pulse Rate 96 89 Respiratory 18 Rate Blood Pressure 117/75 130/79 126/75 O2 Sat by Pulse 99 99 96 Oximetry 11/29/24 11/29/24 11/29/24 03:32 05:29 06:21 Temperature 97.7 F Pulse Rate 96 87 Respiratory 18 Rate Blood Pressure 116/82 149/93 152/87 O2 Sat by Pulse 98 97 Oximetry 11/29/24 06:50 Temperature 97.8 F Pulse Rate 91 Respiratory 18 Rate Blood Pressure 148/89 O2 Sat by Pulse 99 Oximetry Medical Decision Making - Medical Decision Making Were old charts reviewed (outside hosp., previous admission, EMS record, old EKG, old radiological studies, urgent care reports/EKG's, longterm records)? Report findings @ -Medical records reviewed reviewed report from MRI abdomen done on 10/22/2024, noted significantly limited exam due to mesenteric edema, bowel peristalsis and intra-abdominal fat, showed small volume ascites with mesenteric edema, mild intra and extrahepatic biliary duct dilation due to postcholecystectomy and trace bilateral pleural effusions Differential Diagnosis (chest pain, altered mental status, abdominal pain women, abdominal pain men, vaginal bleeding, weakness, fever, dyspnea, syncope, h eadache, dizziness, GI bleed, back pain, seizure, CVA, palpatations, mental health, musculoskeletal)? Differential Abdominal Pain Women: Appendicitis, Cholecystitis, diverticulosis, ischemic bowel, pancreatitis, hepatitis, UTI, gastroenteritis, AAA, incarcerated hernia, bowel obstruction, constipation, inflammatory bowel, hepatitis, peptic ulcer disease, splenic infarction, perforated viscus, PID, kidney stone, this is not meant to be an all-inclusive list EKG interpreted by me (3pts min.). @ -As above X-rays interpreted by me (1pt min.). @ -None done CT interpreted by me (1pt min.). @ -Personally reviewed CT scan abdomen pelvis, appears to show small bowel wall thickening with air-fluid levels, concerning for small bowel obstruction U/S interpreted by me (1pt. min.). @ -None done What testing was considered but not performed or refused? (CT, X-rays, U/S, labs)? Why? @ -None What meds were considered but not given or refused? Why? @ -None Did you discuss the management of the patient with other professionals (professionals i.e. , VALERIA, [employer], lab, RT, psych nurse, perinatal social worker, scientific informatics leader, teacher, special weapons unit officer, pillowcase folder)? Give summary @Case was discussed with general surgery, Dr. Roldan, , kindly agrees to be on consult for patient, agrees with plan for NG tube Was smoking cessation discussed for >3mins.? @ -No Was critical care preformed (if so, how long)? @ -No Were there social determinants of health that impacted care today? How? (Homelessness, low income, unemployed, alcoholism, drug addiction, transportation, low edu. Level, literacy, decrease access to med. care, usp, rehab)? @ -No Was there de-escalation of care discussed even if they declined (Discuss DNR or withdrawal of care, Hospice)? @ -No What co-morbidities impacted this encounter? (DM, HTN, Smoking, COPD, CAD, Cancer, CVA, ARF, Chemo, Hep., AIDS, mental health diagnosis, sleep apnea, morbid obesity)? @Stage IV ovarian cancer Was patient admitted / discharged? Hospital course, mention meds given and route, prescriptions, significant lab abnormalities, going to OR and other pertinent info. @Admission - This is apleasant 64-year-old female history of stage IV ovarian cancer presenting today for abdominal pain x 1 evening. Patient afebrile on arrival, vital signs within acceptable limits. On my assessment does have firm, diffusely tender abdomen mildly distended with active bowel sounds. Plan for CT abdomen pelvis, small amount of IV fluids, given patient's lower extremity edema, pain control, labs. CT scan shows findings consistent with partial small bowel obstruction. Case was discussed with , he is agreeable with remaining consult the patient admitted here. Given patient is palliative care measures only at this time. NG tube will be placed to low intermittent suction. Updated patient to findings and plan of care. She endorsed some movement pain with Dilaudid however pain is returning. Additional pain control ordered. She is agreeable plan for admission. Case was discussed with Case discussed with BEN Quevedo, kindly accept patient for admission. Undiagnosed new problem with uncertain prognosis? @ -No Drug Therapy requiring intensive monitoring for toxicity (Heparin, Nitro, Insulin, Cardizem)? @ -No Were any procedures done? @ -No Diagnosis/symptom? @Small bowel obstruction Acute, or Chronic, or Acute on Chronic? @Acute Uncomplicated (without systemic symptoms) or Complicated (systemic symptoms)? @Complicated Side effects of treatment? @ -No Exacerbation, Progression, or Severe Exacerbation? @ -No Poses a threat to life or bodily function? How? (Chest pain, USA, PR, pneumonia, PE, COPD, DKA, ARF, appy, cholecystitis, CVA, Diverticulitis, Homicidal, Suicidal, threat to staff... and all critical care pts) Yes if left untreated could result in bowel perforation, septic shock and - Lab Data Result diagrams: 12/02/24 03:17 12/02/24 03:19 Lab Results 11/29/24 11/29/24 11/29/24 Range/Units 00:01 00:01 00:01 WBC 9.5 (3.8-10.6) k/uL RBC 3.74 L (3.80-5.40) m/uL Hgb 11.8 (11.4-16.0) gm/dL Hct 36.6 (34.0-46.0) % MCV 97.9 (80.0-100.0) fL MCH 31.6 (25.0-35.0) pg MCHC 32.2 (31.0-37.0) g/dL RDW 13.1 (11.5-15.5) % Plt Count 324 (150-450) k/uL MPV 8.8 Neutrophils % 87 % Lymphocytes % 8 % Monocytes % 3 % Eosinophils % 1 % Basophils % 1 % Neutrophils # 8.2 H (1.3-7.7) k/uL Lymphocytes # 0.8 L (1.0-4.8) k/uL Monocytes # 0.3 (0-1.0) k/uL Eosinophils # 0.1 (0-0.7) k/uL Basophils # 0.1 (0-0.2) k/uL PT 10.1 (10.0-12.5) sec INR 0.9 (<1.2) APTT 21.1 L (22.0-30.0) sec Sodium 134 L (137-145) mmol/L Potassium 3.8 (3.5-5.1) mmol/L Chloride 96 L (98-107) mmol/L Carbon Dioxide 36 H (22-30) mmol/L Anion Gap 2 mmol/L BUN 16 (7-17) mg/dL Creatinine 0.57 (0.52-1.04) mg/dL Est GFR (CKD-EPI)AfAm >90 (>60 ml/min/1.73 sqM) Est GFR (CKD-EPI)NonAf >90 (>60 ml/min/1.73 sqM) Glucose 106 H (74-99) mg/dL Plasma Lactic Acid Nacho (0.7-2.0) mmol/L Calcium 7.0 L (8.4-10.2) mg/dL Total Bilirubin 0.5 (0.2-1.3) mg/dL AST 30 (14-36) U/L ALT 15 (4-34) U/L Alkaline Phosphatase 97 (38-126) U/L Total Protein 4.6 L (6.3-8.2) g/dL Albumin 2.3 L (3.5-5.0) g/dL Amylase 42 (30-110) U/L Lipase 250 (23-300) U/L Urine Color Urine Appearance (Clear) Urine pH (5.0-8.0) Ur Specific [place] (1.001-1.035) Urine Protein (Negative) Urine Glucose (UA) (Negative) Urine Ketones (Negative) Urine Blood (Negative) Urine Nitrite (Negative) Urine Bilirubin (Negative) Urine Urobilinogen (<2.0) mg/dL Ur Leukocyte Esterase (Negative) Urine RBC (0-5) /hpf Urine WBC (0-5) /hpf Ur Squamous Epith Cells (0-4) /hpf Urine Bacteria (None) /hpf Urine Mucus (None) /hpf Blood Type Blood Type Confirm Blood Type Recheck Bld Type Recheck Status Antibody Screen Spec Expiration Date 11/29/24 11/29/24 11/29/24 Range/Units 00:01 00:01 00:06 WBC (3.8-10.6) k/uL RBC (3.80-5.40) m/uL Hgb (11.4-16.0) gm/dL Hct (34.0-46.0) % MCV (80.0-100.0) fL MCH (25.0-35.0) pg MCHC (31.0-37.0) g/dL RDW (11.5-15.5) % Plt Count (150-450) k/uL MPV Neutrophils % % Lymphocytes % % Monocytes % % Eosinophils % % Basophils % % Neutrophils # (1.3-7.7) k/uL Lymphocytes # (1.0-4.8) k/uL Monocytes # (0-1.0) k/uL Eosinophils # (0-0.7) k/uL Basophils # (0-0.2) k/uL PT (10.0-12.5) sec INR (<1.2) APTT (22.0-30.0) sec Sodium (137-145) mmol/L Potassium (3.5-5.1) mmol/L Chloride (98-107) mmol/L Carbon Dioxide (22-30) mmol/L Anion Gap mmol/L BUN (7-17) mg/dL Creatinine (0.52-1.04) mg/dL Est GFR (CKD-EPI)AfAm (>60 ml/min/1.73 sqM) Est GFR (CKD-EPI)NonAf (>60 ml/min/1.73 sqM) Glucose (74-99) mg/dL Plasma Lactic Acid Nacho 0.8 (0.7-2.0) mmol/L Calcium (8.4-10.2) mg/dL Total Bilirubin (0.2-1.3) mg/dL AST (14-36) U/L ALT (4-34) U/L Alkaline Phosphatase (38-126) U/L Total Protein (6.3-8.2) g/dL Albumin (3.5-5.0) g/dL Amylase (30-110) U/L Lipase (23-300) U/L Urine Color Urine Appearance (Clear) Urine pH (5.0-8.0) Ur Specific [place] (1.001-1.035) Urine Protein (Negative) Urine Glucose (UA) (Negative) Urine Ketones (Negative) Urine Blood (Negative) Urine Nitrite (Negative) Urine Bilirubin (Negative) Urine Urobilinogen (<2.0) mg/dL Ur Leukocyte Esterase (Negative) Urine RBC (0-5) /hpf Urine WBC (0-5) /hpf Ur Squamous Epith Cells (0-4) /hpf Urine Bacteria (None) /hpf Urine Mucus (None) /hpf Blood Type A Positive Blood Type Confirm A Positive Blood Type Recheck No Previous Record Bld Type Recheck Status CABO Indicated Antibody Screen NEGATIVE Spec Expiration Date 12/02/2024 - 230011/29/24 Range/Units 00:51 WBC (3.8-10.6) k/uL RBC (3.80-5.40) m/uL Hgb (11.4-16.0) gm/dL Hct (34.0-46.0) % MCV (80.0-100.0) fL MCH (25.0-35.0) pg MCHC (31.0-37.0) g/dL RDW (11.5-15.5) % Plt Count (150-450) k/uL MPV Neutrophils % % Lymphocytes % % Monocytes % % Eosinophils % % Basophils % % Neutrophils # (1.3-7.7) k/uL Lymphocytes # (1.0-4.8) k/uL Monocytes # (0-1.0) k/uL Eosinophils # (0-0.7) k/uL Basophils # (0-0.2) k/uL PT (10.0-12.5) sec INR (<1.2) APTT (22.0-30.0) sec Sodium (137-145) mmol/L Potassium (3.5-5.1) mmol/L Chloride (98-107) mmol/L Carbon Dioxide (22-30) mmol/L Anion Gap mmol/L BUN (7-17) mg/dL Creatinine (0.52-1.04) mg/dL Est GFR (CKD-EPI)AfAm (>60 ml/min/1.73 sqM) Est GFR (CKD-EPI)NonAf (>60 ml/min/1.73 sqM) Glucose (74-99) mg/dL Plasma Lactic Acid Nacho (0.7-2.0) mmol/L Calcium (8.4-10.2) mg/dL Total Bilirubin (0.2-1.3) mg/dL AST (14-36) U/L ALT (4-34) U/L Alkaline Phosphatase (38-126) U/L Total Protein (6.3-8.2) g/dL Albumin (3.5-5.0) g/dL Amylase (30-110) U/L Lipase (23-300) U/L Urine Color [place] Urine Appearance Cloudy H (Clear) Urine pH 8.5 H (5.0-8.0) Ur Specific [place] 1.027 (1.001-1.035) Urine Protein 2+ H (Negative) Urine Glucose (UA) Negative (Negative) Urine Ketones 1+ H (Negative) Urine Blood Negative (Negative) Urine Nitrite Negative (Negative) Urine Bilirubin Negative (Negative) Urine Urobilinogen <2.0 (<2.0) mg/dL Ur Leukocyte Esterase Negative (Negative) Urine RBC 2 (0-5) /hpf Urine WBC 5 (0-5) /hpf Ur Squamous Epith Cells <1 (0-4) /hpf Urine Bacteria Rare H (None) /hpf Urine Mucus Occasional H (None) /hpf Blood Type Blood Type Confirm Blood Type Recheck Bld Type Recheck Status Antibody Screen Spec Expiration Date Disposition Clinical Impression: Partial small bowel obstruction Disposition: ADMITTED IP TO THIS [facility] Condition: Stable
[2024-11-28] MEDS: ONDANSETRON 4 MG/2 ML VIAL IVP STA (22:34)
[2024-11-28] MEDS: HYDROmorphone 1 MG/ML 1 ML SYRINGE IVP STA (22:41)
[2024-11-28] MEDS: SODIUM CHLORIDE 0.9% 500 ML 500 ML IV ONE (23:10)
[2024-11-29 00:39] LABS: Basophils # (A) 0.1 k/uL (0-0.2); Basophils % (A) 1 %; Eosinophils # (A) 0.1 k/uL (0-0.7); Eosinophils % (A) 1 %; HCT 36.6 % (34.0-46.0); HGB 11.8 gm/dL (11.4-16.0); Lymphocytes # (A) 0.8 k/uL (1.0-4.8); Lymphocytes % (A) 8 %; MCH 31.6 pg (25.0-35.0); MCHC 32.2 g/dL (31.0-37.0); MCV 97.9 fL (80.0-100.0); Mean Platelet Volume 8.8; Monocytes # (A) 0.3 k/uL (0-1.0); Monocytes % (A) 3 %; Neutrophils # (A) 8.2 k/uL (1.3-7.7); Neutrophils % (A) 87 %; Platelet Count 324 k/uL (150-450); RBC 3.74 m/uL (3.80-5.40); RDW 13.1 % (11.5-15.5); WBC 9.5 k/uL (3.8-10.6)
[2024-11-29 00:53] LABS: INR 0.9 (<1.2); Prothrombin Time 10.1 sec (10.0-12.5)
[2024-11-29 00:55] LABS: ALT 15 U/L (4-34); AST 30 U/L (14-36); African American GFR (CKD) >90 (>60 ml/min/1.73 sqM); Albumin 2.3 g/dL (3.5-5.0); Alkaline Phosphatase 97 U/L (38-126); Amylase 42 U/L (30-110); Anion Gap 2 mmol/L; Blood Urea Nitrogen 16 mg/dL (7-17); Carbon Dioxide 36 mmol/L (22-30); Chloride 96 mmol/L (98-107); Glucose 106 mg/dL (74-99); Lipase 250 U/L (23-300); Non-African American GFR(CKD) >90 (>60 ml/min/1.73 sqM); Partial Thromboplastin Time 21.1 sec (22.0-30.0); Potassium 3.8 mmol/L (3.5-5.1); Sodium 134 mmol/L (137-145); Total Bilirubin 0.5 mg/dL (0.2-1.3); Total Protein 4.6 g/dL (6.3-8.2)
[2024-11-29 01:16] LABS: Appearance,Urine Cloudy (Clear); Bacteria,Urine Rare /hpf; Bilirubin,Urine Negative (Negative); Blood,Urine Negative (Negative); Color,Urine Orange; Glucose,Urine (UA) Negative (Negative); Ketones,Urine 1+ (Negative); Leukocyte Esterase,Urine Negative (Negative); Mucus,Urine Occasional /hpf; Nitrite,Urine Negative (Negative); PH, Urine 8.5 (5.0-8.0); Protein,Urine 2+ (Negative); RBC,Urine 2 /hpf (0-5); Specific Gravity,Urine 1.027 (1.001-1.035); Squamous Epithelial Cell,Urine <1 /hpf (0-4); Urobilinogen,Urine <2.0 mg/dL (<2.0); WBC,Urine 5 /hpf (0-5)
--- NOTE | 2024-11-29 03:21 | CT ---
EXAM: CT Abdomen and Pelvis With Intravenous Contrast CLINICAL HISTORY: ITS.REASON CT Reason: abdominal pain TECHNIQUE: Axial computed tomography images of the abdomen and pelvis with intravenous contrast. CTDI is 13.8 mGy and DLP is 664.8 mGy-cm. This CT exam was performed using one or more of the following dose reduction techniques: automated exposure control, adjustment of the mA and/or kV according to patient size, and/or use of iterative reconstruction technique. Delayed imaging was performed. COMPARISON: PET/CT 11/08/24 FINDINGS: There are partially imaged bilateral breast implants. There is a partially imaged central venous catheter extending to the right atrium. Heart size is normal. Lung bases are clear. There is mild-moderate loculated ascites, likely malignant ascites. There is extensive omental caking and peritoneal nodularity consistent with peritoneal carcinomatosis. A right lateral approach drainage catheter terminates in the right subhepatic space. There is subcutaneous soft tissue mass at the catheter insertion site, likely metastasis. Liver is unremarkable. Gallbladder surgically absent. Common bile duct and central intrahepatic bile duct enlargement likely represents reservoir effect. Spleen, pancreas, adrenal glands, and kidneys are unremarkable. Aorta is normal in caliber. No discrete adenopathy is visualized. There are dilated loops of small bowel measuring up to 3.4 cm. Transition point is suggested in the anterior abdomen near the midline (coronal image 11). Appearance suggest partial small bowel obstruction. There is no free air. Uterus is not visualized and is presumed surgically absent. Urinary bladder is incompletely distended. There are no suspicious bone lesions or acute osseous findings. There is severe disc degeneration at L4-L5. There is generalized anasarca. IMPRESSION: 1. Findings suspicious for partial small bowel obstruction with transition point in the anterior abdomen near the midline. 2. Peritoneal carcinomatosis with mild-moderate ascites. Right-sided percutaneous drainage catheter in place. 3. Anasarca.
[2024-11-29] MEDS: HYDROmorphone 1 MG/ML 1 ML SYRINGE IVP STA (03:29)
[2024-11-29] MEDS ORDERED: NALOXONE 0.4 MG/ML 1 ML VIAL IV PRN (04:48)
[2024-11-29] MEDS ORDERED: ACETAMINOPHEN TAB 325 MG TAB PO PRN (04:48)
[2024-11-29] MEDS: SODIUM CHLORIDE 0.9% 1,000 ML IV SCH (05:33)
[2024-11-29] MEDS: MIDAZOLAM 2 MG/2 ML VIAL IV ONE (05:34)
--- NOTE | 2024-11-29 06:15 | XR ---
EXAMINATION TYPE: XR chest 1V confirm line [facility] DATE OF EXAM: 11/29/2024 CLINICAL INDICATION: Female, 64 years old with history of NG Tube placement confirmation, progress st udy. TECHNIQUE: Single AP portable upright view of the chest is obtained. COMPARISON: CT from earlier today FINDINGS: There is new nasogastric tube projecting below diaphragm. The visualized lungs are clear. Right-sided Mediport catheter is noted. Contrast excretion from recent CT is seen in visualized porti on of both kidneys. No free air is present. Moderately distended gas filled stomach is noted. Osseous structures are intact. Only upper half of the abdomen is imaged IMPRESSION: As above. Successful interval placement of nasogastric tube. [facility], , 11/29/2024 6:12 AM
[2024-11-29] MEDS: PANTOPRAZOLE 40 MG/10 ML VIAL IV SCH (08:28)
[2024-11-29] MEDS: HYDROmorphone 1 MG/ML 1 ML SYRINGE IVP PRN ×2 (08:29→11:39)
[2024-11-29] MEDS ORDERED: HYDROmorphone 2 MG TAB PO PRN (11:14)
--- NOTE | 2024-11-29 12:43 | P.GSCN ---
History of Present Illness Consult date: 11/29/24 History of present illness: CHIEF COMPLAINT: Abdominal pain HISTORY OF PRESENT ILLNESS: This is a 64-year-old female with history of ovarian cancer stage IV. Patient with history of abdominal ascites and has a percutaneous drain to drain the ascites. Patient reports being on palliative care at home and takes vitamins. She is not on any chemotherapy. CODE STATUS i s DNR. She presents to the hospital with complaints of upper diffuse abdominal pain and distention that started yesterday. She has been having nausea and vomiting. She has had issues with constipation in the past. No prior history of bowel obstruction. Her last bowel movement was 2 days ago. She has a past surgical history of a and cholecystectomy. CT scan abdomen and pelvis completed reported partial small bowel obstruction with transition point in the anterior abdomen near the midline. Peritoneal carcinomatosis with mild to moderate ascites. Right sided percutaneous drainage catheter in place. Anasarca. Patient had NG tube placed. Has not had much output through the NG tube. Patient reports she was recently started on lactulose for constipation and took it the day before her pain started. She did have a bowel movement from that on Tuesday. PAST MEDICAL HISTORY: See below PAST SURGICAL HISTORY: See below MEDICATIONS: See below ALLERGIES: See below SOCIAL HISTORY: No illicit drug use. REVIEW OF SYSTEMS: CONSTITUTIONAL: Denies fever or chills. HEENT: Denies blurred vision, vision changes, or eye pain. Denies hemoptysis CARDIOVASCULAR: Denies chest pain or pressure. RESPIRATORY: No shortness of breath. GASTROINTESTINAL: See HPI for pertinent findings HEMATOLOGIC: Denies bleeding disorders. GENITOURINARY: Denies any blood in urine or increased urinary frequency. SKIN: Denies pruitis. Denies rash. PHYSICAL EXAM: VITAL SIGNS: Reviewed GENERAL: Well-developed in no acute distress. HEENT: No sclera icterus. Extraocular movements grossly intact. Moist buccal mucosa. Head is atraumatic, normocephalic. No nasal drainage. NG tube in place with bilious drainage. ABDOMEN: Distended. Diffuse tenderness. No rebound or guarding noted. Percutaneous drain on the right side of the abdomen. Dressing clean dry and intact. NEUROLOGIC: Alert and oriented. Cranial nerves II through XII grossly intact. LABORATORY DATA: WBC 9.5 Hgb 11.8 platelets 324 Sodium 134 potassium 3.8 creatinine 0.57 Lactic acid 0.8 IMAGING: CT scan abdomen and pelvis completed reported partial small bowel obstruction with transition point in the anterior abdomen near the midline. Peritoneal carcinomatosis with mild to moderate ascites. Right sided percutaneous drainage catheter in place. Anasarca. ASSESSMENT: 1. Partial small bowel obstruction 2. History of stage IV ovarian cancer 3. CT with evidence of peritoneal carcinomatosis with mild to moderate ascites PLAN: -Continue NG tube for decompression -Keep patient n.p.o. except for ice chips -Continue IV fluids -continue pain management -Continue antiemetics -Further recommendations forthcoming per surgeon Physician Member [employer] note has been reviewed by physician. Signing provider agrees with the documented findings, assessment, and plan of care. I have personally seen and examined the patient, reviewed the BILLET INSPECTOR /PAs history, exam and MDM and agree with the assessment and plan as written. Based on total visit time, I have performed more than 50% of the visit. As above: Patient with carcinomatosis. Presents with abdominal pain and bloating. Pain came in waves. Suspect partial intestinal obstruction. Difficult to delineate site of obstruction given the significant intra-abdominal pathology on CAT scan. Continue nasogastric tube to suction for now. Increase activity as tolerated. Monitor NG output. Past Medical History Past Medical History: Cancer Additional Past Medical History / Comment(s): tami's disease stage 4 ovarian cancer. History of Any Multi-Drug Resistant Organisms: None Reported Past Surgical History: Section, Cholecystectomy, Orthopedic Surgery, Tonsillectomy Additional Past Surgical History / Comment(s): two tubal , wrist surgery Additional Past Anesthesia/Blood Transfusion Reaction / Comm: none Past Psychological History: Anxiety, Bipolar, Depression Smoking Status: Never smoker Past Alcohol Use History: None Reported Past Drug Use History: None Reported - Past Family History Father Family Medical History: COPD Additional Family Medical History / Comment(s): emphysema, at 82yrs Mother Family Medical History: Cancer, Diabetes Mellitus Additional Family Medical History / Comment(s): breast cancer, at 80yrs from dehydration per patient. Medications and Allergies Home Medications Medication Instructions Recorded Confirmed Type traMADol HCL 50 mg PO TID 03/08/23 11/29/24 History Thyroid,Pork [[place] Thyroid] 120 mg PO DAILY 30 Days #30 03/10/23 11/29/24 Rx Famotidine [Pepcid] 20 mg PO DAILY 10/19/24 11/29/24 History Furosemide [Lasix] 20 mg PO BID PRN 10/19/24 11/29/24 History Spironolactone [Aldactone] 25 mg PO DAILY 10/19/24 11/29/24 History Lactulose [Cephulac] 20 gm PO BID #360 ml 10/23/24 11/29/24 Rx Calcium Carbonate [Tums] 500 mg PO DAILY 11/29/24 11/29/24 History Cholecalciferol (Vitamin D3) 1,250 mcg PO Q7D 11/29/24 11/29/24 History [Vitamin D3 (1250 Mcg = 50,000 Iu)] Cyanocobalamin [Vitamin B-12 1,000 mcg SQ Q7D 11/29/24 11/29/24 History Injection] HYDROmorphone [Dilaudid] 4 mg PO TID 11/29/24 11/29/24 History Levothyroxine Sodium [Synthroid] 88 mcg PO DAILY 11/29/24 11/29/24 History modafiniL [Provigil] 200 mg PO DAILY 11/29/24 11/29/24 History Allergies Allergy/AdvReac Type Severity Reaction Status Date / Time diphenhydramine Allergy anxiety & Verified 11/29/24 11:44 [From Benadryl] rash zolpidem [From Ambien] AdvReac Hallucinati Verified 11/29/24 11:44 ons Surgical - Exam Vital Signs Temp Pulse Resp BP Pulse Ox 97.9 F 96 18 117/75 99 11/28/24 21:08 11/28/24 21:08 11/28/24 21:08 11/28/24 21:08 11/28/24 21:08 Results - Labs 11/29/24 00:01 11/29/24 00:01 Abnormal Lab Results - Last 24 Hours (Table) 11/29/24 11/29/24 11/29/24 Range/Units 00:01 00:01 00:01 RBC 3.74 L (3.80-5.40) m/uL Neutrophils # 8.2 H (1.3-7.7) k/uL Lymphocytes # 0.8 L (1.0-4.8) k/uL APTT 21.1 L (22.0-30.0) sec Sodium 134 L (137-145) mmol/L Chloride 96 L (98-107) mmol/L Carbon Dioxide 36 H (22-30) mmol/L Glucose 106 H (74-99) mg/dL Calcium 7.0 L (8.4-10.2) mg/dL Total Protein 4.6 L (6.3-8.2) g/dL Albumin 2.3 L (3.5-5.0) g/dL Urine Appearance (Clear) Urine pH (5.0-8.0) Urine Protein (Negative) Urine Ketones (Negative) Urine Bacteria (None) /hpf Urine Mucus (None) /hpf 11/29/24 Range/Units 00:51 RBC (3.80-5.40) m/uL Neutrophils # (1.3-7.7) k/uL Lymphocytes # (1.0-4.8) k/uL APTT (22.0-30.0) sec Sodium (137-145) mmol/L Chloride (98-107) mmol/L Carbon Dioxide (22-30) mmol/L Glucose (74-99) mg/dL Calcium (8.4-10.2) mg/dL Total Protein (6.3-8.2) g/dL Albumin (3.5-5.0) g/dL Urine Appearance Cloudy H (Clear) Urine pH 8.5 H (5.0-8.0) Urine Protein 2+ H (Negative) Urine Ketones 1+ H (Negative) Urine Bacteria Rare H (None) /hpf Urine Mucus Occasional H (None) /hpf Diabetes panel 11/29/24 Range/Units 00:01 Sodium 134 L (137-145) mmol/L Potassium 3.8 (3.5-5.1) mmol/L Chloride 96 L (98-107) mmol/L Carbon Dioxide 36 H (22-30) mmol/L BUN 16 (7-17) mg/dL Creatinine 0.57 (0.52-1.04) mg/dL Glucose 106 H (74-99) mg/dL Calcium 7.0 L (8.4-10.2) mg/dL AST 30 (14-36) U/L ALT 15 (4-34) U/L Alkaline Phosphatase 97 (38-126) U/L Total Protein 4.6 L (6.3-8.2) g/dL Albumin 2.3 L (3.5-5.0) g/dL Calcium panel 11/29/24 Range/Units 00:01 Calcium 7.0 L (8.4-10.2) mg/dL Albumin 2.3 L (3.5-5.0) g/dL Pituitary panel 11/29/24 Range/Units 00:01 Sodium 134 L (137-145) mmol/L Potassium 3.8 (3.5-5.1) mmol/L Chloride 96 L (98-107) mmol/L Carbon Dioxide 36 H (22-30) mmol/L BUN 16 (7-17) mg/dL Creatinine 0.57 (0.52-1.04) mg/dL Glucose 106 H (74-99) mg/dL Calcium 7.0 L (8.4-10.2) mg/dL Adrenal panel 11/29/24 Range/Units 00:01 Sodium 134 L (137-145) mmol/L Potassium 3.8 (3.5-5.1) mmol/L Chloride 96 L (98-107) mmol/L Carbon Dioxide 36 H (22-30) mmol/L BUN 16 (7-17) mg/dL Creatinine 0.57 (0.52-1.04) mg/dL Glucose 106 H (74-99) mg/dL Calcium 7.0 L (8.4-10.2) mg/dL Total Bilirubin 0.5 (0.2-1.3) mg/dL AST 30 (14-36) U/L ALT 15 (4-34) U/L Alkaline Phosphatase 97 (38-126) U/L Total Protein 4.6 L (6.3-8.2) g/dL Albumin 2.3 L (3.5-5.0) g/dL
--- NOTE | 2024-11-29 14:00 | P.HPIM ---
History of Present Illness H&P Date: 11/29/24 Patient is a 64-year-old female with a history of metastatic ovarian cancer (not on chemotherapy or radiation), ascites with drain port, hypothyroidism comes to the ER with sudden onset of abdominal pain on the afternoon of 11/28/2024. Patient reports that she was at home when pain started which she describes a sharp like, 10 out of 10, nonradiating associated with some nausea. Patient never experienced abdominal pain of such severity in the past. Patient stated that she is on palliative care and has denied chemotherapy and radiation since she wants to maintain her current quality of life. Patient was diagnosed with ovarian cancer in January 2024. Patient follows up with oncologist Dr. Watkins at [facility]. Patient has recurrent episodes ascites because of metastatic ovarian cancer within 1 year. She has a right upper quadrant port for ascites since July 2024. Patient also has a Mediport on left upper chest since April 2024. Patient denies bloody or tarry colored stools. Patient reports unintentional weight loss and poor appetite since 1 year. Patient denies any chest pain, shortness of breath, numbness or tingling of the lower extremities. Patient reports improvement in her pain after decompression with NG tube and Dilaudid. Initial laboratory evaluation shows WBC 9.5, hemoglobin 11.8, hematocrit 26.6, MCV 97.9, platelet count 324, PT 10.1, INR 0.9, APTT 21.1, sodium 134, potassium 3.2, chloride 96, bicarb 26, BUN 16, creatinine 0.57, >EGFR,90), plus midepigastric 0.8, calcium 7.0, total bili 0.5, AST 30, ALT 15, ALP 97, albumin 2.3, lipase 250 Urinalysis is positive for 2+ proteinuria, 1+ ketonuria CT of the abdomen and pelvis shows partial small bowel obstruction with decision point in the anterior abdomen near the midline; peritoneal carcinomatosis with mild to moderate ascites with right side percutaneous drainage catheter in place; anasarca Chest x-ray shows NG tube in place Vitals on arrival she was temperature 97.92 Fahrenheit, pulse rate 96, resp iratory 18, blood pressure 117/75, oxygen saturation 99% on room air. Review of systems: Pertinent positives and negatives as discussed in HPI, a complete review of systems was performed and all other systems are negative. Physical examination: Vital signs reviewed General: Ill-appearing, cachectic with generalized muscle wasting Derm: no unusual rashes/lesions, warm Head: atraumatic, normocephalic, symmetric Eyes: EOMI, no lid lag, anicteric sclera, pupils equal round reactive to light ENT: Nose and ears atraumatic, NG tube in place draining bile fluid Neck: No cervical lymphadenopathy, trachea midline, supple Mouth: no lip lesion, mucus membranes moist Cardiovascular: S1S2 reg, no murmur, positive dorsalis pedis pulse bilateral, no edema, Mediport clean dry and intact Lungs: CTA bilateral, no rhonchi, no rales, no accessory muscle use Abdominal: Mildly distended with diffuse mild tenderness to palpation. No rebound tenderness. Right ascites catheter in place and intact Ext: muscle strength 5 out of 5 in all 4 extremities grossly, no gross muscle atrophy, no contractures, Neuro: CN II-XI grossly intact, no gross focal neuro deficits Psych: Alert, oriented, appropriate affect Assessment/Plan: This is a Patient is a 64-year-old female with a history of metastatic ovarian cancer (not on chemotherapy or radiation), ascites with drain port, hypothyroid ism comes to the ER with sudden onset of abdominal pain on the afternoon of 11/28/2024. . Case was discussed with the Emergency Room provider and decision was made to admit the patient for small bowel obstruction. Labs and images: Laboratory evaluation shows WBC 9.5, hemoglobin 11.8, hematocrit 26.6, MCV 97.9, platelet count 324, PT 10.1, INR 0.9, APTT 21.1, sodium 134, potassium 3.2, chloride 96, bicarb 26, BUN 16, creatinine 0.57, >EGFR,90), plus midepigastric 0.8, calcium 7.0, total bili 0.5, AST 30, ALT 15, ALP 97, albumin 2.3, lipase 250 Urinalysis is positive for 2+ proteinuria, 1+ ketonuria CT of the abdomen and pelvis shows partial small bowel obstruction with decision point in the anterior abdomen near the midline; peritoneal carcinomatosis with mild to moderate ascites with right side percutaneous drainage catheter in place; anasarca Chest x-ray shows NG tube in place Active: #Abdominal pain secondary to small bowel obstruction CT abdomen pelvis results as above NG tube for decompression Keep patient n.p.o. Dilaudid 2 mg IVP every 3 hours as needed Consult general surgery IV normal saline at 75 cc/h IV Zofran #Metastatic ovarian cancer Consult oncology Palliative care Order CBC and BMP tomorrow a.m. Chronic conditions: #Hypothyroidism #Ascites #Insomnia Hold home medications for now since patient is n.p.o. DVT prophylaxis: Subcu heparin GI prophylaxis: Protonix 40 mg IV daily F: IV normal saline at 75 cc/h E: Replete as needed N: N.p.o. A: Ambulatory at baseline The patient is admitted with an anticipated more than than 2 midnight stay for evaluation of small bowel obstruction in the setting of metastatic ovarian cancer CODE STATUS: No code Discussed with: Patient Anticipated discharge place: Pending clinical course Dictation was produced using eTelemetry dictation software. Please excuse any grammatical, word or spelling errors. Attestation I have seen and examined this patient with my resident , discussed the same with the resident/NOLAN, and agree with the dictator's assessment and plan as written GENERAL: The patient is alert and oriented x3, NG tube. HEENT: Pupils are round and equally reacting to light. EOMI. No scleral icterus. No conjunctival pallor. Normocephalic, atraumatic. No pharyngeal erythema. No thyromegaly. CARDIOVASCULAR: S1 and S2 present. No murmurs, rubs, or gallops. PULMONARY: Chest is clear to auscultation, no wheezing or crackles. ABDOMEN: Distended, bowel sounds are not audible, drain seen MUSCULOSKELETAL: No joint swelling or deformity. EXTREMITIES: No cyanosis, clubbing, or pedal edema. NEUROLOGICAL: Gross neurological examination did not reveal any focal deficits. SKIN: No rashes. Dr. Drake easton Past Medical History Past Medical History: Cancer Additional Past Medical History / Comment(s): tami's disease stage 4 ovarian cancer. History of Any Multi-Drug Resistant Organisms: None Reported Past Surgical History: Section, Cholecystectomy, Orthopedic Surgery, Tonsillectomy Additional Past Surgical History / Comment(s): two tubal , wrist surgery Past Psychological History: Anxiety, Bipolar, Depression Smoking Status: Never smoker Past Alcohol Use History: None Reported Past Drug Use History: None Reported - Past Family History Father Family Medical History: COPD Additional Family Medical History / Comment(s): emphysema, at 82yrs Mother Family Medical History: Cancer, Diabetes Mellitus Additional Family Medical History / Comment(s): breast cancer, at 80yrs from dehydration per patient. Medications and Allergies Home Medications Medication Instructions Recorded Confirmed Type traMADol HCL 50 mg PO TID 03/08/23 11/29/24 History Thyroid,Pork [[place] Thyroid] 120 mg PO DAILY 30 Days #30 03/10/23 11/29/24 Rx Famotidine [Pepcid] 20 mg PO DAILY 10/19/24 11/29/24 History Furosemide [Lasix] 20 mg PO BID PRN 10/19/24 11/29/24 History Spironolactone [Aldactone] 25 mg PO DAILY 10/19/24 11/29/24 History Lactulose [Cephulac] 20 gm PO BID #360 ml 10/23/24 11/29/24 Rx Calcium Carbonate [Tums] 500 mg PO DAILY 11/29/24 11/29/24 History Cholecalciferol (Vitamin D3) 1,250 mcg PO Q7D 11/29/24 11/29/24 History [Vitamin D3 (1250 Mcg = 50,000 Iu)] Cyanocobalamin [Vitamin B-12 1,000 mcg SQ Q7D 11/29/24 11/29/24 History Injection] HYDROmorphone [Dilaudid] 4 mg PO TID 11/29/24 11/29/24 History Levothyroxine Sodium [Synthroid] 88 mcg PO DAILY 11/29/24 11/29/24 History modafiniL [Provigil] 200 mg PO DAILY 11/29/24 11/29/24 History Allergies Allergy/AdvReac Type Severity Reaction Status Date / Time diphenhydramine Allergy anxiety & Verified 11/29/24 11:44 [From Benadryl] rash zolpidem [From Ambien] AdvReac Hallucinati Verified 11/29/24 11:44 ons Physical Exam Vitals: Vital Signs Temp Pulse Pulse Resp BP BP Pulse Ox 11/29/24 07:55 97.5 F L 85 16 153/75 99 11/29/24 06:50 97.8 F 91 18 148/89 99 11/29/24 06:21 97.7 F 87 18 152/87 97 11/29/24 05:29 149/93 11/29/24 03:32 96 116/82 98 11/29/24 00:00 126/75 96 11/28/24 22:33 89 130/79 99 11/28/24 21:08 97.9 F 96 18 117/75 99 Intake and Output 11/28/24 11/29/24 11/29/24 22:59 06:59 14:59 Other: Voiding Method Toilet Weight 52.163 kg Results CBC & Chem 7: 11/30/24 04:06 11/30/24 04:06 Labs: Abnormal Lab Results - Last 24 Hours (Table) 11/29/24 11/29/24 11/29/24 Range/Units 00:01 00:01 00:01 RBC 3.74 L (3.80-5.40) m/uL Neutrophils # 8.2 H (1.3-7.7) k/uL Lymphocytes # 0.8 L (1.0-4.8) k/uL APTT 21.1 L (22.0-30.0) sec Sodium 134 L (137-145) mmol/L Chloride 96 L (98-107) mmol/L Carbon Dioxide 36 H (22-30) mmol/L Glucose 106 H (74-99) mg/dL Calcium 7.0 L (8.4-10.2) mg/dL Total Protein 4.6 L (6.3-8.2) g/dL Albumin 2.3 L (3.5-5.0) g/dL Urine Appearance (Clear) Urine pH (5.0-8.0) Urine Protein (Negative) Urine Ketones (Negative) Urine Bacteria (None) /hpf Urine Mucus (None) /hpf 11/29/24 Range/Units 00:51 RBC (3.80-5.40) m/uL Neutrophils # (1.3-7.7) k/uL Lymphocytes # (1.0-4.8) k/uL APTT (22.0-30.0) sec Sodium (137-145) mmol/L Chloride (98-107) mmol/L Carbon Dioxide (22-30) mmol/L Glucose (74-99) mg/dL Calcium (8.4-10.2) mg/dL Total Protein (6.3-8.2) g/dL Albumin (3.5-5.0) g/dL Urine Appearance Cloudy H (Clear) Urine pH 8.5 H (5.0-8.0) Urine Protein 2+ H (Negative) Urine Ketones 1+ H (Negative) Urine Bacteria Rare H (None) /hpf Urine Mucus Occasional H (None) /hpf
[2024-11-29 17:30] VITALS: BMI 18.0
[2024-11-29] MEDS: ONDANSETRON 4 MG/2 ML VIAL IVP PRN (20:40)
[2024-11-30 08:54] LABS: BUN/Creat Ratio 25.57 Ratio (12.00-20.00); Blood Urea Nitrogen 17.9 mg/dL (9.0-27.0); Calcium 8.1 mg/dL (8.7-10.3); Chloride 102 mmol/L (96-109); Glucose 114 mg/dL (70-110); Potassium 3.9 mmol/L (3.5-5.5); Sodium 141 mmol/L (135-145)
[2024-11-30 09:12] LABS: Basophils # (A) 0.02 X 10*3/uL (0.00-0.10); Basophils % (A) 0.2 %; Eosinophils # (A) 0.01 X 10*3/uL (0.04-0.35); Eosinophils % (A) 0.1 %; HCT 40.3 % (37.2-46.3); Lymphocytes # (A) 0.75 X 10*3/uL (0.90-5.00); Lymphocytes % (A) 7.8 %; MCH 31.7 pg (27.0-32.0); MCHC 32.3 g/dL (32.0-37.0); MCV 98.3 FL (80.0-97.0); Mean Platelet Volume 11.1 FL (9.5-12.2); Monocytes # (A) 0.29 X 10*3/uL (0.20-1.00); NRBC Per 100 WBC 0 X 10*3/uL (0.00-0.01); Neutrophils # (A) 8.44 X 10*3/uL (1.80-7.70); Neutrophils % (A) 88.4 %; Platelet Count 339 X 10*3/uL (140-440); RDW 12.8 % (11.5-14.5); WBC 9.56 X 10*3/uL (4.50-10.00)
--- NOTE | 2024-11-30 14:05 | P.PN ---
Subjective Progress Note Date: 11/30/24 Hospital Course: Patient is a 64-year-old female with a history of metastatic ovarian cancer (not on chemotherapy or radiation), ascites with drain port, hypothyroidism comes to the ER with sudden onset of abdominal pain on the afternoon of 11/28/2024. Patient reports that she was at home when pain started which she describes a sharp like, 10 out of 10, nonradiating associated with some nausea. Patient never experienced abdominal pain of such severity in the past. Patient stated that she is on palliative care and has denied chemotherapy and radiation since she wants to maintain her current quality of life. Patient was diagnosed with ovarian cancer in January 2024. Patient follows up with oncologist Dr. Watkins at [facility]. Patient has recurrent episodes ascites because of metastatic ovarian cancer within 1 year. She has a right upper quadrant port for ascites since July 2024. Patient also has a Mediport on left upper chest since April 2024. Patient denies bloody or tarry colored stools. Patient reports unintentional weight loss and poor appetite since 1 year. Patient denies any chest pain, shortness of breath, numbness or tingling of the lower extremities. Patient reports improvement in her pain after decompression with NG tube and Dilaudid. Initial laboratory evaluation shows WBC 9.5, hemoglobin 11.8, hematocrit 26.6, MCV 97.9, platelet count 324, PT 10.1, INR 0.9, APTT 21.1, sodium 134, potassium 3.2, chloride 96, bicarb 26, BUN 16, creatinine 0.57, >EGFR,90), plus mi depigastric 0.8, calcium 7.0, total bili 0.5, AST 30, ALT 15, ALP 97, albumin 2.3, lipase 250 Urinalysis is positive for 2+ proteinuria, 1+ ketonuria CT of the abdomen and pelvis shows partial small bowel obstruction with decision point in the anterior abdomen near the midline; peritoneal carcinomatosis with mild to moderate ascites with right side percutaneous drainage catheter in place; anasarca Chest x-ray shows NG tube in place Vitals on arrival she was temperature 97.92 Fahrenheit, pulse rate 96, respiratory 18, blood pressure 117/75, oxygen saturation 99% on room air. Subjective: Patient seen and examined at the bedside. No acute events overnight. Approximately 2 L of ascitic fluid was drained yesterday. Approximately 350 cc of gastric fluid was drained from NG. Patient denies shortness of breath, chest pain. All Systems reviewed and pertinent positives and negatives noted in HPI, all other symptoms are negative Objective: Vital signs reviewed General: Ill-appearing, cachectic with generalized muscle wasting Derm: no unusual rashes/lesions, warm Head: atraumatic, normocephalic, symmetric Eyes: EOMI, no lid lag, anicteric sclera, pupils equal round reactive to light ENT: Nose and ears atraumatic, NG tube in place draining bile fluid Neck: No cervical lymphadenopathy, trachea midline, supple Mouth: no lip lesion, mucus membranes moist Cardiovascular: S1S2 reg, no murmur, positive dorsalis pedis pulse bilateral, no edema, Mediport clean dry and intact Lungs: CTA bilateral, no rhonchi, no rales, no accessory muscle use Abdominal: Mildly distended with diffuse mild tenderness to palpation. No rebound tenderness. Right ascites catheter in place and intact Ext: muscle strength 5 out of 5 in all 4 extremities grossly, no gross muscle atrophy, no contractures, Neuro: CN II-XI grossly intact, no gross focal neuro deficits Psych: Alert, oriented, appropriate affect Data reviewed today: Pertinent Labs: WBC 9.56, hemoglobin 13.0, sodium 141, potassium 3.9, BUN 17.9, creatinine 0.7, consider glucose 214, calcium 8.1 Images: No new imaging Assessment and Plan: #Abdominal pain secondary to small bowel obstruction CT abdomen pelvis shows SBO and peritoneal carcinomatosis Continue NG tube for decompression Keep patient n.p.o. except for ice chips Dilaudid 2 mg IVP every 3 hours as needed General Surgery on board, appreciate recs IV normal saline at 75 cc/h IV Zofran #Metastatic ovarian cancer Consult oncology Palliative care Order CBC and BMP tomorrow a.m. Chronic conditions: #Hypothyroidism #Ascites #Insomnia Hold home medications for now since patient is n.p.o. DVT prophylaxis: Lovenox 40 subcu daily GI prophylaxis: Protonix 40 mg IV daily F: IV normal saline at 75 cc/h E: Replete as needed N: N.p.o. A: Ambulatory at baseline CODE STATUS: No code Discussed with: Patient Anticipated discharge place: Pending clinical course Dictation was produced using [employer] dictation software. Please excuse any grammatical, word or spelling errors. Attestation I have seen and examined this patient with my resident , discussed the same with the resident/NOLAN, and agree with the dictator's assessment and plan as written GENERAL: The patient is alert and oriented x3, not in any acute distress. Well developed, well nourished. HEENT: Pupils are round and equally reacting to light. EOMI. No scleral icterus. No conjunctival pallor. Normocephalic, atraumatic. No pharyngeal erythema. No thyromegaly. CARDIOVASCULAR: S1 and S2 present. No murmurs, rubs, or gallops. PULMONARY: Chest is clear to auscultation, no wheezing or crackles. ABDOMEN: Soft, nontender, nondistended, drain in place MUSCULOSKELETAL: No joint swelling or deformity. EXTREMITIES: No cyanosis, clubbing, or pedal edema. NEUROLOGICAL: Gross neurological examination did not reveal any focal deficits. SKIN: No rashes. Dr. Drake easton Objective - Vital Signs Vital signs: Vital Signs Temp 97.6 F 11/30/24 12:20 Pulse 87 11/30/24 12:20 Resp 17 11/30/24 12:20 BP 145/76 11/30/24 12:20 Pulse Ox 97 11/30/24 12:20 FiO2 Intake & Output 11/29/24 11/30/24 11/30/24 18:59 06:59 18:59 Intake Total 360 Output Total 750 2700 Balance -390 -2700 Weight 52.163 kg Intake: Oral 360 Output: Gastric Drainage 350 Drainage 2000 Right Lower Abdomen 2000 Urine 400 Emesis 700 Other: Voiding Method Toilet Toilet Toilet # Voids 1 2 - Labs CBC & Chem 7: 12/02/24 03:17 12/03/24 05:52 Labs: Abnormal Lab Results - Last 24 Hours (Table) 11/30/24 11/30/24 Range/Units 04:06 04:06 MCV 98.3 H (80.0-97.0) FL Immature Gran # 0.05 H (0.00-0.04) X 10*3/uL Neutrophils # 8.44 H (1.80-7.70) X 10*3/uL Lymphocytes # 0.75 L (0.90-5.00) X 10*3/uL Eosinophils # 0.01 L (0.04-0.35) X 10*3/uL Anion Gap 13.00 H (4.00-12.00) mmol/L BUN/Creatinine Ratio 25.57 H (12.00-20.00) Ratio Glucose 114 H (70-110) mg/dL Calcium 8.1 L (8.7-10.3) mg/dL
[2024-11-30] MEDS: ENOXAPARIN 40 MG/0.4 ML SYRINGE SQ SCH (14:14)
--- NOTE | 2024-11-30 15:00 | P.PN ---
Subjective Progress Note Date: 11/30/24 SURGICAL PROGRESS NOTE CHIEF COMPLAINT: Small bowel obstruction HISTORY OF PRESENT ILLNESS: Patient reports she is having a small amount of flatus. Her pain is controlled. She did report some nausea. NG tube with 750 mL brownish output last night and 500 this morning. Afebrile. WBC is 9.56. 2000 mL ascites fluid drained from percutaneous drain PHYSICAL EXAM: VITAL SIGNS: Reviewed. GENERAL: Well-developed in no acute distress. ABDOMEN: Distended. No rebound or guarding noted NEUROLOGIC: Alert and oriented. Cranial nerves II through XII grossly intact. ASSESSMENT: 1. Partial small bowel obstruction 2. History of stage IV ovarian cancer 3. Peritoneal carcinomatosis 4. Abdominal ascites PLAN: -Continue NG tube for decompression -Keep patient n.p.o. except for ice chips -Continue pain management -Continue IV fluids -Encourage patient to increase activity level. Clamp NG tube and have patient ambulate in the hallway. Physician Pellet Preparation Operator note has been reviewed by physician. Signing provider agrees with the documented findings, assessment, and plan of care. I have personally seen and examined the patient, reviewed the EMERGENCY VETERINARY ASSISTANT /PAs history, exam and MDM and agree with the assessment and plan as written. Based on total visit time, I have performed more than 50% of the visit. As above: Patient still seems obstructed. Still having pain and significant NG output. Keep nasogastric tube to suction. Continue intermittent peritoneal fluid drainage. Will follow. Objective - Vital Signs Vital signs: Vital Signs Temp 97.6 F 11/30/24 12:20 Pulse 87 11/30/24 12:20 Resp 17 11/30/24 12:20 BP 145/76 11/30/24 12:20 Pulse Ox 97 11/30/24 12:20 FiO2 Intake & Output 11/29/24 11/30/24 11/30/24 18:59 06:59 18:59 Intake Total 360 Output Total 750 2700 Balance -390 -2700 Weight 52.163 kg Intake: Oral 360 Output: Gastric Drainage 350 Drainage 2000 Right Lower Abdomen 2000 Urine 400 Emesis 700 Other: Voiding Method Toilet Toilet Toilet # Voids 1 2 - Labs CBC & Chem 7: 11/30/24 04:06 11/30/24 04:06 Labs: Abnormal Lab Results - Last 24 Hours (Table) 03/14/25 03/14/25 Range/Units 04:06 04:06 MCV 98.3 H (80.0-97.0) FL Immature Gran # 0.05 H (0.00-0.04) X 10*3/uL Neutrophils # 8.44 H (1.80-7.70) X 10*3/uL Lymphocytes # 0.75 L (0.90-5.00) X 10*3/uL Eosinophils # 0.01 L (0.04-0.35) X 10*3/uL Anion Gap 13.00 H (4.00-12.00) mmol/L BUN/Creatinine Ratio 25.57 H (12.00-20.00) Ratio Glucose 114 H (70-110) mg/dL Calcium 8.1 L (8.7-10.3) mg/dL
[2024-11-30] MEDS: BENZOCAINE SPRAY 1 CAN MUCOUS MEM PRN (18:15)
--- NOTE | 2024-11-30 20:06 | P.CONS ---
History of Present Illness - Reason for Consult Consult date: 11/30/24 ovarian cancer Requesting physician: Xiang Singleton - Chief Complaint abd pain - History of Present Illness Ms. Amin is a 64-year-old woman with a past medical history significant for hypothyroidism and ovarian cancer, who presented to establish care for ovarian cancer. SHe is established care in July [address] Debra Lizarraga. She noted having progressive abdominal distention that developed in December 2023 when she lived in [place]. She was hospitalized and was noted to have abdominal ascites. 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 It was negative for CK20, calretinin, Napsin A, [place], and HER2. There is felt to be consistent with gynecologic malignancy, including ovarian in origin. She did establish with Dr. Milan at [facility] in [place], [place]. Based off of staging imaging, she was noted to have stage IIIC ([id number]) with peritoneal involvement and malignant ascites. It was noted that there was a long discussion regarding induction chemotherapy with carboplatin/paclitaxel with consideration of optimal debulking after 3-6 cycles. She notes that she was told she had stage IV disease following initial consultation and that all treatment would be palliative in intent. She noted receiving holistic treatments in [place] through doctors who practiced in [place] between initial consultation in January 2024 and March 2024. She did describe a procedure where she had a catheter placed into the abdomen and noted receiving chemotherapy. Follow-up with her oncologist at that time noted decreased CA125 at 125 compared to 3400 on 01/10/2024. She attributes this to high dose vitamin C that she was receiving and has been trying to consistently receive vitamin C infusions. She had a PET/CT on 06/14/2024 in [place], [place] that noted numerous hypermetabolic peritoneal implants in the abdomen/pelvis that appeared mildly increased compared to prior study on 03/16/2024. In addition, there were small left pelvic lymph nodes that had increased uptake with an SUV of 5.5 including the left external iliac lymph node measuring 1 cm. There was no evidence of distant metastatic disease. During this time, she did have additional consultation with Dr. Esdras Sanchez in [place], [place] at the [facility] where ctDNA noted 2 TP53 mutations. In addition, molecular profiling from peritoneal fluid noted presence of TP53 Y220C at [facility] 67.5% and LRP1B mutation at [facility] 14.4%. TMB was low with microsatellite stable disease. There was tumor origin testing performed that noted 99% probability of ovarian serous carcinoma. She notes she was never referred to gynecologic oncology, although initial consultation note did mention sending referral to gynecology. Patient was then referred to Dr. Mae Sharpe at [place] for additional evaluation. She was scheduled for clinic f/u on 08/30/2024, but pt did not show for appt and was lost to follow up. Since last f/u pt had peritoneal drainage catheter placed, reporting drainage daily of approx 1 liter. She followed up with Dr. Sharpe's partner Dr. Mackey and they discussed treatment options with carbo/taxol vs comfort care measures. During last admit 6 weeks ago, pt verbalized she wanted to complete PET CT and follow up locally with Dr. Lizarraga. Since discharge PET/CT performed on 11/08/2024 revealed persistent omental caking with no evidence of distant metastatic disease. At her f/u upon discharhe pt was not interested in chemotherapy and wanted to continue obtaining high-dose vitamin C. Patient presented to the emergency room with acute onset of abdominal pain. Upon admission CT abdomen pelvis revealed partial small bowel obstruction with transition point in the anterior abdomen near the midline. Peritoneal carcinomatosis with mild to moderate ascites. Right sided percutaneous drainage catheter in place. And anasarca. General surgery has been consulted and NG tube has been placed. At today's visit patient is reporting improvement in symptoms. Nausea is intermittent but denies vomiting. Tolerating ice chips and small sips of tyree bill. Labs reviewed, WBC 9.5, hemoglobin 13.0, platelets 339,000. Creatinine 0.7, GFR 95. Bilirubin is LFTs WNL. Urinalysis negative for UTI. Review of Systems 10 point ROS is negative except as stated in the HPI Past Medical History Past Medical History: Cancer Additional Past Medical History / Comment(s): tami's disease stage 4 ovarian cancer. History of Any Multi-Drug Resistant Organisms: None Reported Past Surgical History: Section, Cholecystectomy, Orthopedic Surgery, Tonsillectomy Additional Past Surgical History / Comment(s): two tubal , wrist surgery Additional Past Anesthesia/Blood Transfusion Reaction / Comm: none Past Psychological History: Anxiety, Bipolar, Depression Smoking Status: Never smoker Past Alcohol Use History: None Reported Past Drug Use History: None Reported - Past Family History Father Family Medical History: COPD Additional Family Medical History / Comment(s): emphysema, at 82yrs Mother Family Medical History: Cancer, Diabetes Mellitus Additional Family Medical History / Comment(s): breast cancer, at 80yrs from dehydration per patient. Medications and Allergies Home Medications Medication Instructions Recorded Confirmed Type traMADol HCL 50 mg PO TID 03/08/23 11/29/24 History Thyroid,Pork [[place] Thyroid] 120 mg PO DAILY 30 Days #30 03/10/23 11/29/24 Rx Famotidine [Pepcid] 20 mg PO DAILY 10/19/24 11/29/24 History Furosemide [Lasix] 20 mg PO BID PRN 10/19/24 11/29/24 History Spironolactone [Aldactone] 25 mg PO DAILY 10/19/24 11/29/24 History Lactulose [Cephulac] 20 gm PO BID #360 ml 10/23/24 11/29/24 Rx Calcium Carbonate [Tums] 500 mg PO DAILY 11/29/24 11/29/24 History Cholecalciferol (Vitamin D3) 1,250 mcg PO Q7D 11/29/24 11/29/24 History [Vitamin D3 (1250 Mcg = 50,000 Iu)] Cyanocobalamin [Vitamin B-12 1,000 mcg SQ Q7D 11/29/24 11/29/24 History Injection] HYDROmorphone [Dilaudid] 4 mg PO TID 11/29/24 11/29/24 History Levothyroxine Sodium [Synthroid] 88 mcg PO DAILY 11/29/24 11/29/24 History modafiniL [Provigil] 200 mg PO DAILY 11/29/24 11/29/24 History Allergies Allergy/AdvReac Type Severity Reaction Status Date / Time diphenhydramine Allergy anxiety & Verified 11/29/24 11:44 [From Benadryl] rash zolpidem [From Ambien] AdvReac Hallucinati Verified 11/29/24 11:44 ons Physical Exam Vitals: Vital Signs Temp Pulse Resp BP Pulse Ox 11/30/24 07:22 97.8 F 90 17 125/74 95 11/30/24 00:57 97.5 F L 92 18 136/83 96 11/29/24 20:00 16 11/29/24 17:44 98.2 F 79 16 123/73 99 11/29/24 15:50 98.0 F 87 16 114/77 98 11/29/24 12:07 98.2 F 84 16 158/82 99 Intake and Output 11/29/24 11/30/24 11/30/24 22:59 06:59 14:59 Output Total 2350 700 Balance -2350 -700 Output: Gastric Drainage 350 Drainage 2000 Right Lower Abdomen 2000 Emesis 700 Other: Voiding Method Toilet Toilet # Voids 2 Weight 52.163 kg - Constitutional General appearance: average body habitus, no acute distress - EENT Eyes: anicteric sclerae, EOMI ENT: hearing grossly normal - Respiratory Respiratory: bilateral: CTA - Cardiovascular Rhythm: regular - Gastrointestinal mild diffuse tenderness, no guarding noted - Integumentary Integumentary: no cyanotic, no jaundiced - Neurologic Neurologic: CNII-XII intact - Musculoskeletal Musculoskeletal: strength equal bilaterally Results CBC & Chem 7: 11/30/24 04:06 11/30/24 04:06 Labs: Abnormal Lab Results - Last 24 Hours (Table) 11/30/24 11/30/24 Range/Units 04:06 04:06 MCV 98.3 H (80.0-97.0) FL Immature Gran # 0.05 H (0.00-0.04) X 10*3/uL Neutrophils # 8.44 H (1.80-7.70) X 10*3/uL Lymphocytes # 0.75 L (0.90-5.00) X 10*3/uL Eosinophils # 0.01 L (0.04-0.35) X 10*3/uL Anion Gap 13.00 H (4.00-12.00) mmol/L BUN/Creatinine Ratio 25.57 H (12.00-20.00) Ratio Glucose 114 H (70-110) mg/dL Calcium 8.1 L (8.7-10.3) mg/dL CT scan - abdomen: report reviewed CT scan - pelvis: report reviewed Assessment and Plan (1) Partial small bowel obstruction Current Visit: Yes Status: Acute Priority: High Code(s): K56.600 - PARTIAL INTESTINAL OBSTRUCTION, UNSPECIFIED TO CAUSE SNOMED Code(s): 179286437 (2) Ovarian cancer Current Visit: Yes Status: Acute Priority: High Code(s): C56.9 - MALIGNANT NEOPLASM OF UNSPECIFIED OVARY SNOMED Code(s): 298438613 Plan: SBO: Presented to the emergency room with acute onset of abdominal pain -Upon admission CT abdomen pelvis revealed partial small bowel obstruction with transition point in the anterior abdomen near the midline. Peritoneal carcinomatosis with mild to moderate ascites. Right sided percutaneous drainage catheter in place, and anasarca. -General surgery has been consulted and NG tube has been placed. NPO with ice chips -Reporting improvement in symptoms. Continue supportive medications -Defer management to surgical team Ovarian cancer: -Oncology history as dictated in the HPI -PET/CT performed on 11/08/2024 revealed persistent omental caking with no evidence of distant metastatic disease. -Pt has declined systemic treatment. Wants to continue high dose Vit C infusions -Clinic f/u scheduled next month Doctor attests: I performed a history and physical examination of this patient, developed impression and plan of care. Discussed with dictator. I agree with dictators note, documented as a scribe.
[2024-11-30] MEDS: ONDANSETRON 4 MG/2 ML VIAL IVP PRN (20:37)
--- NOTE | 2024-12-01 08:27 | P.PN ---
Subjective Progress Note Date: 12/01/24 Patient is resting comfortably in bed. She states she did have some small amount of flatus when she drank some tyree bill. However her NG tube canister appears to be quite full. On exam vital signs appear stable. Abdomen soft. Small obstruction related to metastatic ovarian cancer. Patient will continue receive supportive care. I do not think that she has had significant bowel function at this point. Objective - Vital Signs Vital signs: Vital Signs Temp 98.3 F 12/01/24 08:00 Pulse 72 12/01/24 08:00 Resp 16 12/01/24 08:00 BP 134/72 12/01/24 08:00 Pulse Ox 98 12/01/24 08:00 FiO2 Intake & Output 11/30/24 12/01/24 12/01/24 18:59 06:59 18:59 Intake Total 1026 120 Output Total 1150 1100 Balance -124 -980 Intake: Oral 1026 120 Output: Gastric Drainage 1150 1100 Other: Voiding Method Toilet Bedside Commode # Voids 2 - Labs CBC & Chem 7: 11/30/24 04:06 11/30/24 04:06 Labs: Abnormal Lab Results - Last 24 Hours (Table) 11/30/24 11/30/24 Range/Units 04:06 04:06 MCV 98.3 H (80.0-97.0) FL Immature Gran # 0.05 H (0.00-0.04) X 10*3/uL Neutrophils # 8.44 H (1.80-7.70) X 10*3/uL Lymphocytes # 0.75 L (0.90-5.00) X 10*3/uL Eosinophils # 0.01 L (0.04-0.35) X 10*3/uL Anion Gap 13.00 H (4.00-12.00) mmol/L BUN/Creatinine Ratio 25.57 H (12.00-20.00) Ratio Glucose 114 H (70-110) mg/dL Calcium 8.1 L (8.7-10.3) mg/dL
[2024-12-01 09:30] LABS: Calcium 7.7 mg/dL (8.7-10.3); Carbon Dioxide 26.9 mmol/L (21.6-31.8); Chloride 104 mmol/L (96-109); Glucose 79 mg/dL (70-110); Potassium 3.6 mmol/L (3.5-5.5); Sodium 141 mmol/L (135-145)
[2024-12-01 10:23] LABS: Basophils # (A) 0.02 X 10*3/uL (0.00-0.10); Basophils % (A) 0.3 %; Eosinophils # (A) 0.04 X 10*3/uL (0.04-0.35); Eosinophils % (A) 0.6 %; HCT 32.5 % (37.2-46.3); HGB 10.6 g/dL (12.0-15.0); Lymphocytes # (A) 1.01 X 10*3/uL (0.90-5.00); Lymphocytes % (A) 15.6 %; MCH 31.9 pg (27.0-32.0); MCHC 32.6 g/dL (32.0-37.0); MCV 97.9 FL (80.0-97.0); Mean Platelet Volume 10.6 FL (9.5-12.2); Monocytes # (A) 0.41 X 10*3/uL (0.20-1.00); Monocytes % (A) 6.3 %; NRBC Per 100 WBC 0 X 10*3/uL (0.00-0.01); Neutrophils # (A) 4.97 X 10*3/uL (1.80-7.70); Neutrophils % (A) 76.7 %; Platelet Count 263 X 10*3/uL (140-440); RBC 3.32 X 10*6/uL (4.10-5.20); RDW 12.6 % (11.5-14.5); WBC 6.48 X 10*3/uL (4.50-10.00)
[2024-12-01] MEDS: FUROSEMIDE 10 MG/ML 4 ML VIAL IV SCH (11:34)
--- NOTE | 2024-12-01 14:57 | P.PN ---
Subjective Progress Note Date: 12/01/24 Hospital Course: Patient is a 64-year-old female with a history of metastatic ovarian cancer (not on chemotherapy or radiation), ascites with drain port, hypothyroidism comes to the ER with sudden onset of abdominal pain on the afternoon of 11/28/2024. Patient reports that she was at home when pain started which she describes a sharp like, 10 out of 10, nonradiating associated with some nausea. Patient never experienced abdominal pain of such severity in the past. Patient stated that she is on palliative care and has denied chemotherapy and radiation since she wants to maintain her current quality of life. Patient was diagnosed with ovarian cancer in January 2024. Patient follows up with oncologist Dr. Watkins at [facility]. Patient has recurrent episodes ascites because of metastatic ovarian cancer within 1 year. She has a right upper quadrant port for ascites since July 2024. Patient also has a Mediport on left upper chest since April 2024. Patient denies bloody or tarry colored stools. Patient reports unintentional weight loss and poor appetite since 1 year. Patient denies any chest pain, shortness of breath, numbness or tingling of the lower extremities. Patient reports improvement in her pain after decompression with NG tube and Dilaudid. Initial laboratory evaluation shows WBC 9.5, hemoglobin 11.8, hematocrit 26.6, MCV 97.9, platelet count 324, PT 10.1, INR 0.9, APTT 21.1, sodium 134, potassium 3.2, chloride 96, bicarb 26, BUN 16, creatinine 0.57, >EGFR,90), plus mi depigastric 0.8, calcium 7.0, total bili 0.5, AST 30, ALT 15, ALP 97, albumin 2.3, lipase 250 Urinalysis is positive for 2+ proteinuria, 1+ ketonuria CT of the abdomen and pelvis shows partial small bowel obstruction with decision point in the anterior abdomen near the midline; peritoneal carcinomatosis with mild to moderate ascites with right side percutaneous drainage catheter in place; anasarca Chest x-ray shows NG tube in place Vitals on arrival she was temperature 97.92 Fahrenheit, pulse rate 96, respiratory 18, blood pressure 117/75, oxygen saturation 99% on room air. Subjective: Patient seen and examined at the bedside. No acute events overnight. Patient to large bowel movements. Approximately 2.25 L of gastric fluid was drained from NG. Patient denies shortness of breath, chest pain. Patient would like to eat solid food. Denies any abdominal discomfort. All Systems reviewed and pertinent positives and negatives noted in HPI, all other symptoms are negative Objective: Vital signs reviewed General: Ill-appearing, cachectic with generalized muscle wasting Derm: no unusual rashes/lesions, warm Head: atraumatic, normocephalic, symmetric Eyes: EOMI, no lid lag, anicteric sclera, pupils equal round reactive to light ENT: Nose and ears atraumatic, NG tube in place draining bile fluid Neck: No cervical lymphadenopathy, trachea midline, supple Mouth: no lip lesion, mucus membranes moist Cardiovascular: S1S2 reg, no murmur, positive dorsalis pedis pulse bilateral, no edema, Mediport clean dry and intact Lungs: CTA bilateral, no rhonchi, no rales, no accessory muscle use Abdominal: Mildly distended with diffuse mild tenderness to palpation. No rebound tenderness. Right ascites catheter in place and intact Ext: muscle strength 5 out of 5 in all 4 extremities grossly, no gross muscle atrophy, no contractures, Neuro: CN II-XI grossly intact, no gross focal neuro deficits Psych: Alert, oriented, appropriate affect Data reviewed today: Pertinent Labs: WBC 6.48, hemoglobin 10.6, MCV 97.9, sodium 141, potassium 3.6, BUN 22.0, creatinine 0.5 Images: No new imaging Assessment and Plan: #Abdominal pain secondary to partial small bowel obstruction CT abdomen pelvis shows partial SBO and peritoneal carcinomatosis Patient has been able to tolerate liquids since yesterday Clamp NG tube and observe patient for nausea and vomiting, if unremarkable then discontinue NG tube and resume soft diet as tolerated Dilaudid 2 mg IVP every 3 hours as needed, add Toradol 15 mg IVP every 6 hour as needed General Surgery on board, note reviewed, plan discussed to discontinue NG tube if tolerated Discontinue normal saline drip IV Zofran #Metastatic ovarian cancer Consult oncology Home palliative care Order CBC and BMP tomorrow a.m. Chronic conditions: #Hypothyroidism #Ascites #Insomnia Hold home medications for now since patient is n.p.o. DVT prophylaxis: Lovenox 40 subcu daily GI prophylaxis: Protonix 40 mg IV daily F: None E: Replete as needed N: N.p.o. A: Ambulatory at baseline CODE STATUS: No code Discussed with: Patient Anticipated discharge place: Pending clinical course Dictation was produced using [employer] dictation software. Please excuse any grammatical, word or spelling errors. Objective - Vital Signs Vital signs: Vital Signs Temp 97.5 F L 12/01/24 11:57 Pulse 77 12/01/24 11:57 Resp 16 12/01/24 11:57 BP 126/71 12/01/24 11:57 Pulse Ox 100 12/01/24 11:57 FiO2 Intake & Output 11/30/24 12/01/24 12/01/24 18:59 06:59 18:59 Intake Total 7106 544 0513 Output Total 1150 1100 700 Balance -124 -980 620 Intake: Oral 4028 412 8544 Output: Gastric Drainage 1150 1100 700 Other: Voiding Method Toilet Bedside Commode Toilet # Voids 2 5 - Labs CBC & Chem 7: 12/01/24 05:08 12/01/24 05:08 Labs: Abnormal Lab Results - Last 24 Hours (Table) 12/01/24 12/01/24 Range/Units 05:08 05:08 RBC 3.32 L (4.10-5.20) X 10*6/uL Hgb 10.6 L (12.0-15.0) g/dL Hct 32.5 L (37.2-46.3) % MCV 97.9 H (80.0-97.0) FL Creatinine 0.5 L (0.6-1.5) mg/dL BUN/Creatinine Ratio 44.00 H (12.00-20.00) Ratio Calcium 7.7 L (8.7-10.3) mg/dL
[2024-12-02] MEDS: FUROSEMIDE 10 MG/ML 4 ML VIAL IV SCH ×2 (08:08→20:01)
[2024-12-02 09:17] LABS: Basophils # (A) 0.01 X 10*3/uL (0.00-0.10); Basophils % (A) 0.1 %; Eosinophils # (A) 0.03 X 10*3/uL (0.04-0.35); Eosinophils % (A) 0.4 %; HCT 37.3 % (37.2-46.3); Lymphocytes # (A) 1.21 X 10*3/uL (0.90-5.00); Lymphocytes % (A) 15.8 %; MCH 31.3 pg (27.0-32.0); MCHC 32.2 g/dL (32.0-37.0); MCV 97.1 FL (80.0-97.0); Mean Platelet Volume 10.8 FL (9.5-12.2); Monocytes # (A) 0.58 X 10*3/uL (0.20-1.00); Monocytes % (A) 7.6 %; NRBC Per 100 WBC 0 X 10*3/uL (0.00-0.01); Neutrophils # (A) 5.81 X 10*3/uL (1.80-7.70); Neutrophils % (A) 75.6 %; Platelet Count 324 X 10*3/uL (140-440); RBC 3.84 X 10*6/uL (4.10-5.20); RDW 12.5 % (11.5-14.5); WBC 7.68 X 10*3/uL (4.50-10.00)
[2024-12-02 09:34] LABS: BUN/Creat Ratio 28.89 Ratio (12.00-20.00); Calcium 8.3 mg/dL (8.7-10.3); Carbon Dioxide 27.7 mmol/L (21.6-31.8); Chloride 97 mmol/L (96-109); Glucose 99 mg/dL (70-110); Potassium 3.7 mmol/L (3.5-5.5); Sodium 137 mmol/L (135-145)
--- NOTE | 2024-12-02 11:05 | P.PN ---
Subjective Progress Note Date: 12/02/24 Patient had a nasogastric tube removed yesterday. She has tolerated some clear liquids. She states she feels like she may have a bowel movement. On exam vital signs appear stable. Abdomen is soft. Status post bowel obstruction related to metastatic ovarian cancer. Patient can receive supportive care. She will remain on clears. Objective - Vital Signs Vital signs: Vital Signs Temp 97.8 F 12/02/24 07:29 Pulse 83 12/02/24 07:29 Resp 16 12/02/24 07:29 BP 129/77 12/02/24 07:29 Pulse Ox 96 12/02/24 07:29 FiO2 Intake & Output 12/01/24 12/02/24 12/02/24 18:59 06:59 18:59 Intake Total 1320 800 240 Output Total 700 Balance 620 800 240 Intake: Oral 1320 800 240 Output: Gastric Drainage 700 Other: Voiding Method Toilet Toilet # Voids 5 1 - Labs CBC & Chem 7: 12/02/24 03:17 12/02/24 03:19 Labs: Abnormal Lab Results - Last 24 Hours (Table) 12/02/24 12/02/24 Range/Units 03:17 03:19 RBC 3.84 L (4.10-5.20) X 10*6/uL MCV 97.1 H (80.0-97.0) FL Eosinophils # 0.03 L (0.04-0.35) X 10*3/uL Anion Gap 12.30 H (4.00-12.00) mmol/L BUN/Creatinine Ratio 28.89 H (12.00-20.00) Ratio Calcium 8.3 L (8.7-10.3) mg/dL
--- NOTE | 2024-12-02 13:16 | P.PN ---
Subjective Progress Note Date: 12/02/24 This is a pleasant 64-year-old female with history of metastatic ovarian cancer not on any chemo or radiation. Patient was evaluated in [facility] and will follow-up in the office on discharge no further recommendations while inpatient. NG tube was discontinued yesterday and she has been continued on a pured diet and she has not had any significant bowel movement yet. But she is passing gas she has normal active bowel sounds and her abdomen is soft and nontender. She continues on IV Lasix daily for the extensive peripheral edema and will increase this up to twice a day as her edema is not significantly improved. Patient is agreeable to KAMLESH bandages as well and this is discussed with the nurse at the bedside. Blood from today reveals a white blood cell count of 7.68, hemoglobin 12.0, sodium 137, potassium 3.7, BUN of 26, creatinine 0.9. Review of Systems Constitutional: Denied any fatigue denied any fever. Cardio vascular: denied any chest pain, palpitations Gastrointestinal: denied any nausea, vomiting, diarrhea Pulmonary: Denied any shortness of breath cough Neurologic denied any new focal deficits All inpatient medications were reviewed and appropriate changes in these medications as dictated in the interval history and assessment and plan. PHYSICAL EXAMINATION: GENERAL: The patient is alert and oriented x3, not in any acute distress. Well developed, well nourished. HEENT: Pupils are round and equally reacting to light. EOMI. No scleral icterus. No conjunctival pallor. Normocephalic, atraumatic. No pharyngeal erythema. No thyromegaly. CARDIOVASCULAR: S1 and S2 present. No murmurs, rubs, or gallops. PULMONARY: Chest is clear to auscultation, no wheezing or crackles. ABDOMEN: Soft, nontender, nondistended, normoactive bowel sounds. No palpable organomegaly. MUSCULOSKELETAL: No joint swelling or deformity. EXTREMITIES: No cyanosis, clubbing, or pedal edema. +2 pitting edema NEUROLOGICAL: Gross neurological examination did not reveal any focal deficits. SKIN: No rashes. Assessment and plan Abdominal pain secondary to a partial small bowel obstruction resolving NG tube has been discontinued patient continues on a pured diet Metastatic ovarian cancer follows with oncology on an outpatient basis Hypothyroidism resumed on her levothyroxine Abdominal ascites maintained on Aldactone and Lasix twice daily Insomnia Anxiety/bipolar/depression GI prophylaxis No code Plan NG tube has been discontinued patient is on a pured diet and is asking for more food General Surgery is recommending a clear diet Patient's of medications have been resumed as appropriate Will continue IV Lasix 40 mg IV twice daily secondary to her significant peripheral edema Recommend to Kamlesh wrap her lower extremities bilaterally and discussed with the patient to keep her feet and legs elevated while she is sitting. Repeat blood work in the morning Possible discharge home in the next 24 hours if patient is tolerating advance diet and has had a bowel movement. The impression and plan of care has been dictated by Patricia Arango, Nurse Practitioner as directed. Dr. Db MD I have performed a history and physical examination and medical decision making of this patient, discussed the same with the dictator, and agree with the dictators assessment and plan as written, documented as a scribe. Based on total visit time, I have performed more than 50% of this visit. Objective - Vital Signs Vital signs: Vital Signs Temp 97.8 F 12/02/24 07:29 Pulse 83 12/02/24 07:29 Resp 16 12/02/24 07:29 BP 129/77 12/02/24 07:29 Pulse Ox 96 12/02/24 07:29 FiO2 Intake & Output 12/01/24 12/02/24 12/02/24 18:59 06:59 18:59 Intake Total 1320 800 240 Output Total 700 Balance 620 800 240 Intake: Oral 1320 800 240 Output: Gastric Drainage 700 Other: Voiding Method Toilet Toilet # Voids 5 1 - Labs CBC & Chem 7: 12/02/24 03:17 12/02/24 03:19 Labs: Abnormal Lab Results - Last 24 Hours (Table) 12/01/24 12/02/24 12/02/24 Range/Units 05:08 03:17 03:19 RBC 3.32 L 3.84 L (4.10-5.20) X 10*6/uL Hgb 10.6 L (12.0-15.0) g/dL Hct 32.5 L (37.2-46.3) % MCV 97.9 H 97.1 H (80.0-97.0) FL Eosinophils # 0.03 L (0.04-0.35) X 10*3/uL Anion Gap 12.30 H (4.00-12.00) mmol/L BUN/Creatinine Ratio 28.89 H (12.00-20.00) Ratio Calcium 8.3 L (8.7-10.3) mg/dL Assessment and Plan Time with Patient: Less than 30
[2024-12-02] MEDS: THYROID, PORK 30 MG TAB PO SCH (14:13)
[2024-12-02] MEDS: LEVOTHYROXINE 88 MCG TAB PO SCH (14:14)
[2024-12-02] MEDS: SPIRONOLACTONE 25 MG TAB PO SCH (14:14)
[2024-12-02] MEDS: LACTULOSE 20 GM/30 ML CUP PO SCH (20:01)
[2024-12-03 09:29] LABS: Blood Urea Nitrogen 24.8 mg/dL (9.0-27.0); Calcium 8.1 mg/dL (8.7-10.3); Carbon Dioxide 30.6 mmol/L (21.6-31.8); Chloride 98 mmol/L (96-109); Glucose 92 mg/dL (70-110); Magnesium 1.6 mg/dL (1.5-2.4); Potassium 3.9 mmol/L (3.5-5.5); Sodium 138 mmol/L (135-145)
--- NOTE | 2024-12-03 11:15 | P.PN ---
Subjective Progress Note Date: 12/03/24 SURGICAL PROGRESS NOTE CHIEF COMPLAINT: Small bowel obstruction HISTORY OF PRESENT ILLNESS: NG tube was removed over the weekend. Patient is having a small amount of flatus. She did have a small stool that was self extracted. She denies any nausea or vomiting. She is tolerated. Diet. She would like more to eat. She is due to drain her abdominal ascites today. Overall pain is improved and she now just has her chronic tumor abdominal pain. Patient restarted lactulose for constipation. Afebrile. PHYSICAL EXAM: VITAL SIGNS: Reviewed. GENERAL: Well-developed in no acute distress. ABDOMEN: Soft NEUROLOGIC: Alert and oriented. Cranial nerves II through XII grossly intact. ASSESSMENT: 1. Partial small bowel obstruction improved 2. History of stage IV ovarian cancer 3. Peritoneal carcinomatosis 4. Abdominal ascites PLAN: -Advance diet to regular -Encourage patient to increase activity level -Continue supportive care -Patient restarted her lactulose yesterday Physician Laundry Operator Wash Room note has been reviewed by physician. Signing provider agrees with the documented findings, assessment, and plan of care. I have personally seen and examined the patient, reviewed the TONGUE AND GROOVE MACHINE OPERATOR /PAs history, exam and MDM and agree with the assessment and plan as written. Based on total visit time, I have performed more than 50% of the visit. As above: Patient had her nasogastric tube removed this weekend. Tolerating liquids. Asking for regular food to eat. She is frustrated with the pured diet. Patient still having abdominal discomforts. Says it is closer to her baseline. Small amount of bowel activity noted. Continue regular diet. Discussed with patient to be careful with the more dense solid foods. Objective - Vital Signs Vital signs: Vital Signs Temp 98 F 12/03/24 07:03 Pulse 77 12/03/24 07:03 Resp 17 12/03/24 07:03 BP 138/78 12/03/24 07:03 Pulse Ox 99 12/03/24 07:03 FiO2 Intake & Output 12/02/24 12/03/24 12/03/24 18:59 06:59 18:59 Intake Total 1560 200 Output Total 700 Balance 860 200 Intake: Oral 1560 200 Output: Drainage 700 Right Lower Abdomen 700 Other: Voiding Method Toilet Toilet Bedside Commode # Voids 5 1 - Labs CBC & Chem 7: 12/02/24 03:17 12/03/24 05:52 Labs: Abnormal Lab Results - Last 24 Hours (Table) 12/03/24 Range/Units 05:52 BUN/Creatinine Ratio 31.00 H (12.00-20.00) Ratio Calcium 8.1 L (8.7-10.3) mg/dL
[2024-12-03] MEDS ORDERED: FUROSEMIDE 20 MG TAB PO PRN (14:44)
--- NOTE | 2024-12-03 14:52 | P.PN ---
Subjective Progress Note Date: 12/03/24 Hospital Course: Patient is a 64-year-old female with a history of metastatic ovarian cancer (not on chemotherapy or radiation), ascites with drain port, hypothyroidism comes to the ER with sudden onset of abdominal pain on the afternoon of 11/28/2024. Patient reports that she was at home when pain started which she describes a sharp like, 10 out of 10, nonradiating associated with some nausea. Patient never experienced abdominal pain of such severity in the past. Patient stated that she is on palliative care and has denied chemotherapy and radiation since she wants to maintain her current quality of life. Patient was diagnosed with ovarian cancer in January 2024. Patient follows up with oncologist Dr. Watkins at [facility]. Patient has recurrent episodes ascites because of metastatic ovarian cancer within 1 year. She has a right upper quadrant port for ascites since July 2024. Patient also has a Mediport on left upper chest since April 2024. Patient denies bloody or tarry colored stools. Patient reports unintentional weight loss and poor appetite since 1 year. Patient denies any chest pain, shortness of breath, numbness or tingling of the lower extremities. Patient reports improvement in her pain after decompression with NG tube and Dilaudid. Initial laboratory evaluation shows WBC 9.5, hemoglobin 11.8, hematocrit 26.6, MCV 97.9, platelet count 324, PT 10.1, INR 0.9, APTT 21.1, sodium 134, potassium 3.2, chloride 96, bicarb 26, BUN 16, creatinine 0.57, >EGFR,90), plus m idepigastric 0.8, calcium 7.0, total bili 0.5, AST 30, ALT 15, ALP 97, albumin 2.3, lipase 250 Urinalysis is positive for 2+ proteinuria, 1+ ketonuria CT of the abdomen and pelvis shows partial small bowel obstruction with decision point in the anterior abdomen near the midline; peritoneal carcinomatosis with mild to moderate ascites with right side percutaneous drainage catheter in place; anasarca Chest x-ray shows NG tube in place Vitals on arrival she was temperature 97.92 Fahrenheit, pulse rate 96, respiratory 18, blood pressure 117/75, oxygen saturation 99% on room air. Subjective: Patient seen and examined at the bedside. No acute events overnight. NG tube was removed 2 days ago. Patient is having small amount of flatus with small stool that was self extracted. Patient is tolerating soft diet. Patient continued proving her symptoms. All Systems reviewed and pertinent positives and negatives noted in HPI, all other symptoms are negative Objective: Vital signs reviewed General: Ill-appearing, cachectic with generalized muscle wasting Derm: no unusual rashes/lesions, warm Head: atraumatic, normocephalic, symmetric Eyes: EOMI, no lid lag, anicteric sclera, pupils equal round reactive to light ENT: Nose and ears atraumatic Neck: No cervical lymphadenopathy, trachea midline, supple Mouth: no lip lesion, mucus membranes moist Cardiovascular: S1S2 reg, no murmur, positive dorsalis pedis pulse bilateral, no edema, Mediport clean dry and intact Lungs: CTA bilateral, no rhonchi, no rales, no accessory muscle use Abdominal: Mildly distended with no rebound tenderness. Right ascites catheter in place and intact Ext: muscle strength 5 out of 5 in all 4 extremities grossly, no gross muscle atrophy, no contractures, Neuro: CN II-XI grossly intact, no gross focal neuro deficits Psych: Alert, oriented, appropriate affect Data reviewed today: Pertinent Labs: Sodium 138, potassium 3.9, chloride 98, bicarb 30.6, BUN 24.8, creatinine 0.8 Images: No new imaging Assessment and Plan: #Abdominal pain secondary to partial small bowel obstruction status post decompression via NG tube CT abdomen pelvis shows partial SBO and peritoneal carcinomatosis Patient has been able to tolerate liquids and soft diet Advance diet to regular diet Discontinue IV Lasix and start p.o. Lasix 20 mg twice daily Dilaudid 2 mg IVP every 3 hours as needed, add Toradol 15 mg IVP every 6 hour as needed General Surgery on board, note reviewed, appreciate recs #Metastatic ovarian cancer Consult oncology Home palliative care Order CBC and BMP tomorrow a.m. Chronic conditions: #Hypothyroidism #Ascites #Insomnia Medications have been resumed DVT prophylaxis: Lovenox 40 subcu daily GI prophylaxis: Protonix 40 mg IV daily F: None E: Replete as needed N: N.p.o. A: Ambulatory at baseline CODE STATUS: No code Discussed with: Patient Anticipated discharge place: Pending clinical course Dictation was produced using [employer] dictation software. Please excuse any grammatical, word or spelling errors. Objective - Vital Signs Vital signs: Vital Signs Temp 98 F 12/03/24 07:03 Pulse 77 12/03/24 07:03 Resp 17 12/03/24 07:03 BP 138/78 12/03/24 07:03 Pulse Ox 99 12/03/24 07:03 FiO2 Intake & Output 12/02/24 12/03/24 12/03/24 18:59 06:59 18:59 Intake Total 1560 200 Output Total 700 Balance 860 200 Intake: Oral 1560 200 Output: Drainage 700 Right Lower Abdomen 700 Other: Voiding Method Toilet Toilet Bedside Commode # Voids 5 1 - Labs CBC & Chem 7: 12/02/24 03:17 12/03/24 05:52 Labs: Abnormal Lab Results - Last 24 Hours (Table) 12/03/24 Range/Units 05:52 BUN/Creatinine Ratio 31.00 H (12.00-20.00) Ratio Calcium 8.1 L (8.7-10.3) mg/dL
[2024-12-03] MEDS: FUROSEMIDE 20 MG TAB PO SCH (15:06)
--- NOTE | 2024-12-03 15:52 | P.PN ---
Subjective Progress Note Date: 12/03/24 Principal diagnosis: Abdominal distention, discomfort, partial small bowel obstruction In follow-up today patient reports that she has been cleared for diet, she denies any current fevers, nausea, vomiting, she feels like she could have a bowel movement soon, she has been passing gas. Leg swelling is chronic, she has tried multiple things, including Kamlesh bandages, compression stockings, elevation. She is currently awaiting [facility] [facility] to contact her for an appo intment. Objective - Vital Signs Vital signs: Vital Signs Temp 96.1 F L 12/03/24 14:00 Pulse 91 12/03/24 14:00 Resp 18 12/03/24 14:00 BP 116/71 12/03/24 14:00 Pulse Ox 98 12/03/24 14:00 FiO2 Intake & Output 12/02/24 12/03/24 12/03/24 18:59 06:59 18:59 Intake Total 1560 200 Output Total 700 1000 Balance 860 200 -1000 Weight 52.163 kg Intake: Oral 1560 200 Output: Drainage 700 1000 Right Lower Abdomen 700 1000 Other: Voiding Method Toilet Toilet Toilet Bedside Commode # Voids 5 1 - Constitutional General appearance: Present: cooperative, no acute distress, thin - EENT Eyes: Present: anicteric sclerae, EOMI ENT: Present: hearing grossly normal - Respiratory Respiratory: bilateral: diminished (bases) - Cardiovascular Details: Skin warm, well-perfused - Peripheral edema leg Peripheral Edema: bilateral: 2+, Pitting - Gastrointestinal General gastrointestinal: Present: distended - Integumentary Integumentary: Present: normal - Neurologic Neurologic: Present: CNII-XII intact - Musculoskeletal Musculoskeletal: Present: strength equal bilaterally - Psychiatric Psychiatric: Present: A&O x's 3, appropriate affect, intact judgment & insight - Labs CBC & Chem 7: 12/02/24 03:17 12/03/24 05:52 Labs: Abnormal Lab Results - Last 24 Hours (Table) 12/03/24 Range/Units 05:52 BUN/Creatinine Ratio 31.00 H (12.00-20.00) Ratio Calcium 8.1 L (8.7-10.3) mg/dL Assessment and Plan (1) Partial small bowel obstruction Current Visit: Yes Status: Acute Priority: High Code(s): K56.600 - PARTIAL INTESTINAL OBSTRUCTION, UNSPECIFIED TO CAUSE SNOMED Code(s): 602798963 (2) Ovarian cancer Current Visit: Yes Status: Chronic Priority: High Code(s): C56.9 - MALIGNANT NEOPLASM OF UNSPECIFIED OVARY SNOMED Code(s): 141014188 Plan: SBO -CT AP on admit revealed partial small bowel obstruction with transition point in the anterior abdomen near the midline, peritoneal carcinomatosis with mild to moderate ascites. - -General Surgery has followed with pt. NG tube was placed, has since been removed. Surgery has cleared pt for diet. She has been passing gas, feels as though she may have a BM. -Right sided percutaneous drainage catheter. Recent 2L fluid removed. -Pt is reporting improvement in symptoms. -Continue supportive medications -Defer management to Surgical team Ovarian carcinoma -Diagnosis and treatment as dictated in consult -PET/CT performed on 11/08/2024 revealed persistent omental caking with no evidence of distant metastatic disease. -Pt has declined systemic treatment. Wants to continue high dose Vit C infusions -Clinic f/u scheduled next month Patient is okay for discharge from an Oncology standpoint once she has been cleared by Surgery, Internal Medicine and any other consulting Physicians. Doctor attests: I performed a history and physical examination of this patient, developed impression and plan of care. Discussed with dictator. I agree with dictators note, documented as a scribe.
[2024-12-04] MEDS: PANTOPRAZOLE 40 MG TABLET PO SCH (08:12)
[2024-12-04 09:05] LABS: BUN/Creat Ratio 30.57 Ratio (12.00-20.00); Blood Urea Nitrogen 21.4 mg/dL (9.0-27.0); Chloride 100 mmol/L (96-109); Glucose 105 mg/dL (70-110); Sodium 138 mmol/L (135-145)
[2024-12-04 09:06] LABS: Calcium 7.6 mg/dL (8.7-10.3); Carbon Dioxide 32.2 mmol/L (21.6-31.8)
[2024-12-04 09:39] LABS: Basophils # (A) 0.02 X 10*3/uL (0.00-0.10); Basophils % (A) 0.3 %; Eosinophils # (A) 0.02 X 10*3/uL (0.04-0.35); Eosinophils % (A) 0.3 %; HCT 33.9 % (37.2-46.3); HGB 11.1 g/dL (12.0-15.0); Lymphocytes # (A) 1.12 X 10*3/uL (0.90-5.00); Lymphocytes % (A) 17.3 %; MCH 31.4 pg (27.0-32.0); MCHC 32.7 g/dL (32.0-37.0); Mean Platelet Volume 10.9 FL (9.5-12.2); Monocytes # (A) 0.46 X 10*3/uL (0.20-1.00); Monocytes % (A) 7.1 %; NRBC Per 100 WBC 0 X 10*3/uL (0.00-0.01); Neutrophils # (A) 4.84 X 10*3/uL (1.80-7.70); Neutrophils % (A) 74.5 %; Platelet Count 283 X 10*3/uL (140-440); RBC 3.53 X 10*6/uL (4.10-5.20); RDW 12.6 % (11.5-14.5); WBC 6.49 X 10*3/uL (4.50-10.00)
--- NOTE | 2024-12-04 11:47 | P.PN ---
Subjective Progress Note Date: 12/04/24 SURGICAL PROGRESS NOTE CHIEF COMPLAINT: Small bowel obstruction HISTORY OF PRESENT ILLNESS: Patient tolerating regular diet. She is having flatus. She did have a small BM yesterday with self disimpaction. She has had no further BMs even with the lactulose. She complains of feeling dehydrated. She is eating but reports that she feels she is not drinking enough. Afebrile. WBC 6.49 Hgb 11.1 PHYSICAL EXAM: VITAL SIGNS: Reviewed. GENERAL: Well-developed in no acute distress. ABDOMEN: Soft NEUROLOGIC: Alert and oriented. Cranial nerves II through XII grossly intact. ASSESSMENT: 1. Partial small bowel obstruction improved 2. History of stage IV ovarian cancer 3. Peritoneal carcinomatosis 4. Abdominal ascites PLAN: -Soap jerzy enema ordered for constipation -continue Regular diet -Encouraged patient to drink more fluids -Encourage patient to increase activity level Physician Cold Saw Operator note has been reviewed by physician. Signing provider agrees with the documented findings, assessment, and plan of care. I have personally seen and examined the patient, reviewed the REST ROOM MATRON /PAs history, exam and MDM and agree with the assessment and plan as written. Based on total visit time, I have performed more than 50% of the visit. As above: Patient feels impacted. Discussed options of enema, suppository, disimpaction manually. She would like to try an enema first. Continue diet. Objective - Vital Signs Vital signs: Vital Signs Temp 97.7 F 12/04/24 07:25 Pulse 98 12/04/24 07:25 Resp 18 12/04/24 07:25 BP 114/78 12/04/24 07:25 Pulse Ox 98 12/04/24 07:25 FiO2 Intake & Output 12/03/24 12/04/24 12/04/24 18:59 06:59 18:59 Intake Total 1080 Output Total 1000 850 850 Balance 80 -850 -850 Weight 52.163 kg Intake: Oral 1080 Output: Drainage 1000 850 850 Right Lower Abdomen 1000 850 850 Other: Voiding Method Toilet Toilet Toilet # Voids 3 2 - Labs CBC & Chem 7: 12/04/24 04:49 12/04/24 04:49 Labs: Abnormal Lab Results - Last 24 Hours (Table) 12/04/24 12/04/24 Range/Units 04:49 04:49 RBC 3.53 L (4.10-5.20) X 10*6/uL Hgb 11.1 L (12.0-15.0) g/dL Hct 33.9 L (37.2-46.3) % Eosinophils # 0.02 L (0.04-0.35) X 10*3/uL Carbon Dioxide 32.2 H (21.6-31.8) mmol/L BUN/Creatinine Ratio 30.57 H (12.00-20.00) Ratio Calcium 7.6 L (8.7-10.3) mg/dL
[2024-12-04] MEDS ORDERED: CALCIUM CARBONATE 500 MG CHEWABLE PO PRN (12:59)
--- NOTE | 2024-12-04 16:37 | P.PN ---
Subjective Progress Note Date: 12/04/24 Hospital Course: Patient is a 64-year-old female with a history of metastatic ovarian cancer (not on chemotherapy or radiation), ascites with drain port, hypothyroidism comes to the ER with sudden onset of abdominal pain on the afternoon of 11/28/2024. Patient reports that she was at home when pain started which she describes a sharp like, 10 out of 10, nonradiating associated with some nausea. Patient never experienced abdominal pain of such severity in the past. Patient stated that she is on palliative care and has denied chemotherapy and radiation since she wants to maintain her current quality of life. Patient was diagnosed with ovarian cancer in January 2024. Patient follows up with oncologist Dr. Watkins at [facility]. Patient has recurrent episodes ascites because of metastatic ovarian cancer within 1 year. She has a right upper quadrant port for ascites since July 2024. Patient also has a Mediport on left upper chest since April 2024. Patient denies bloody or tarry colored stools. Patient reports unintentional weight loss and poor appetite since 1 year. Patient denies any chest pain, shortness of breath, numbness or tingling of the lower extremities. Patient reports improvement in her pain after decompression with NG tube and Dilaudid. Initial laboratory evaluation shows WBC 9.5, hemoglobin 11.8, hematocrit 26.6, MCV 97.9, platelet count 324, PT 10.1, INR 0.9, APTT 21.1, sodium 134, potassium 3.2, chloride 96, bicarb 26, BUN 16, creatinine 0.57, >EGFR,90), plus mi depigastric 0.8, calcium 7.0, total bili 0.5, AST 30, ALT 15, ALP 97, albumin 2.3, lipase 250 Urinalysis is positive for 2+ proteinuria, 1+ ketonuria CT of the abdomen and pelvis shows partial small bowel obstruction with decision point in the anterior abdomen near the midline; peritoneal carcinomatosis with mild to moderate ascites with right side percutaneous drainage catheter in place; anasarca Chest x-ray shows NG tube in place Vitals on arrival she was temperature 97.92 Fahrenheit, pulse rate 96, respiratory 18, blood pressure 117/75, oxygen saturation 99% on room air. Subjective: Patient seen and examined at the bedside. No acute events overnight. Patient is having small amount of flatus with small stool that was self extracted. Patient is tolerating soft diet. Patient continued proving her symptoms. All Systems reviewed and pertinent positives and negatives noted in HPI, all other symptoms are negative Objective: Vital signs reviewed General: Ill-appearing, cachectic with generalized muscle wasting Derm: no unusual rashes/lesions, warm Head: atraumatic, normocephalic, symmetric Eyes: EOMI, no lid lag, anicteric sclera, pupils equal round reactive to light ENT: Nose and ears atraumatic Neck: No cervical lymphadenopathy, trachea midline, supple Mouth: no lip lesion, mucus membranes moist Cardiovascular: S1S2 reg, no murmur, positive dorsalis pedis pulse bilateral, no edema, Mediport clean dry and intact Lungs: CTA bilateral, no rhonchi, no rales, no accessory muscle use Abdominal: Mildly distended with no rebound tenderness. Right ascites catheter in place and intact Ext: muscle strength 5 out of 5 in all 4 extremities grossly, no gross muscle atrophy, no contractures, Neuro: CN II-XI grossly intact, no gross focal neuro deficits Psych: Alert, oriented, appropriate affect Data reviewed today: Pertinent Labs: WBC 6.49, hemoglobin 9.1, sodium 138, potassium 4.0, chloride 100, bicarb 32.2 Images: No new imaging Assessment and Plan: #Abdominal pain secondary to partial small bowel obstruction status post decompression via NG tube #Constipation CT abdomen pelvis shows partial SBO and peritoneal carcinomatosis Patient has been able to tolerate liquids and soft diet Advance diet to regular diet Continue with p.o. Lasix 20 mg twice daily Dilaudid 2 mg IVP every 3 hours as needed, add Toradol 15 mg IVP every 6 hour as needed General Surgery on board, note reviewed, appreciate recs; soap jerzy enema ordered for constipation #Metastatic ovarian cancer Consult oncology Home palliative care Order CBC and BMP tomorrow a.m. Chronic conditions: #Hypothyroidism #Ascites #Insomnia Medications have been resumed DVT prophylaxis: Lovenox 40 subcu daily GI prophylaxis: Protonix 40 mg IV daily F: None E: Replete as needed N: N.p.o. A: Ambulatory at baseline CODE STATUS: No code Discussed with: Patient Anticipated discharge place: Pending clinical course Dictation was produced using [employer] dictation software. Please excuse any grammatical, word or spelling errors. Attestation I have seen and examined this patient with my resident , discussed the same with the resident/NOLAN, and agree with the dictator's assessment and plan as written GENERAL: The patient is alert and oriented x3, not in any acute distress. Well developed, well nourished. HEENT: Pupils are round and equally reacting to light. EOMI. No scleral icterus. No conjunctival pallor. Normocephalic, atraumatic. No pharyngeal erythema. No thyromegaly. CARDIOVASCULAR: S1 and S2 present. No murmurs, rubs, or gallops. PULMONARY: Chest is clear to auscultation, no wheezing or crackles. ABDOMEN: Soft, nontender, peritoneal catheter seen, bowel sounds audible MUSCULOSKELETAL: No joint swelling or deformity. EXTREMITIES: No cyanosis, clubbing, or pedal edema. NEUROLOGICAL: Gross neurological examination did not reveal any focal deficits. SKIN: No rashes. Dr. Drake easton Objective - Vital Signs Vital signs: Vital Signs Temp 97.8 F 12/04/24 12:48 Pulse 73 12/04/24 12:48 Resp 16 12/04/24 12:48 BP 119/76 12/04/24 12:48 Pulse Ox 98 12/04/24 12:48 FiO2 Intake & Output 12/03/24 12/04/24 12/04/24 18:59 06:59 18:59 Intake Total 1080 Output Total 1000 850 850 Balance 80 -850 -850 Weight 52.163 kg Intake: Oral 1080 Output: Drainage 1000 850 850 Right Lower Abdomen 1000 850 850 Other: Voiding Method Toilet Toilet Toilet # Voids 3 2 - Labs CBC & Chem 7: 12/05/24 04:30 12/05/24 04:30 Labs: Abnormal Lab Results - Last 24 Hours (Table) 12/04/24 12/04/24 Range/Units 04:49 04:49 RBC 3.53 L (4.10-5.20) X 10*6/uL Hgb 11.1 L (12.0-15.0) g/dL Hct 33.9 L (37.2-46.3) % Eosinophils # 0.02 L (0.04-0.35) X 10*3/uL Carbon Dioxide 32.2 H (21.6-31.8) mmol/L BUN/Creatinine Ratio 30.57 H (12.00-20.00) Ratio Calcium 7.6 L (8.7-10.3) mg/dL
[2024-12-05] MEDS: LEVOTHYROXINE 88 MCG TAB PO SCH (05:04)
[2024-12-05 08:26] LABS: Basophils # (A) 0.02 X 10*3/uL (0.00-0.10); Basophils % (A) 0.3 %; Eosinophils # (A) 0.03 X 10*3/uL (0.04-0.35); Eosinophils % (A) 0.4 %; HCT 33.9 % (37.2-46.3); Lymphocytes # (A) 1.34 X 10*3/uL (0.90-5.00); Lymphocytes % (A) 18.3 %; MCH 31.5 pg (27.0-32.0); MCHC 32.4 g/dL (32.0-37.0); MCV 97.1 FL (80.0-97.0); Mean Platelet Volume 10.8 FL (9.5-12.2); Monocytes % (A) 5.5 %; NRBC Per 100 WBC 0 X 10*3/uL (0.00-0.01); Neutrophils # (A) 5.49 X 10*3/uL (1.80-7.70); Platelet Count 306 X 10*3/uL (140-440); RBC 3.49 X 10*6/uL (4.10-5.20); RDW 12.5 % (11.5-14.5); WBC 7.32 X 10*3/uL (4.50-10.00)
[2024-12-05 08:49] LABS: BUN/Creat Ratio 31.86 Ratio (12.00-20.00); Blood Urea Nitrogen 22.3 mg/dL (9.0-27.0); Carbon Dioxide 32.7 mmol/L (21.6-31.8); Chloride 98 mmol/L (96-109); Glucose 107 mg/dL (70-110); Magnesium 1.5 mg/dL (1.5-2.4); Potassium 4.3 mmol/L (3.5-5.5); Sodium 138 mmol/L (135-145)
--- NOTE | 2024-12-05 10:47 | P.PN ---
Subjective Progress Note Date: 12/05/24 SURGICAL PROGRESS NOTE CHIEF COMPLAINT: Small bowel obstruction HISTORY OF PRESENT ILLNESS: Patient received soap jerzy enema yesterday with a large amount of stool. Her second soapsuds only a small liquidy amount of stool. She reports her abdominal pain feels like her chronic pain. She is having flatus. She did get nauseous yesterday after the prune juice. No vomiting. She is tolerating diet. She is requesting regular diet without the gluten-free restriction. Afebrile. WBC 7.32 Hgb 11 platelets 306 PHYSICAL EXAM: VITAL SIGNS: Reviewed. GENERAL: Well-developed in no acute distress. ABDOMEN: Soft NEUROLOGIC: Alert and oriented. Cranial nerves II through XII grossly intact. ASSESSMENT: 1. Partial small bowel obstruction improved 2. History of stage IV ovarian cancer 3. Peritoneal carcinomatosis 4. Abdominal ascites PLAN: -Continue regular diet -Continue lactulose -Encourage patient to ambulate Physician Log Hooker note has been reviewed by physician. Signing provider agrees with the documented findings, assessment, and plan of care. Objective - Vital Signs Vital signs: Vital Signs Temp 98.1 F 12/05/24 06:56 Pulse 77 12/05/24 06:56 Resp 16 12/05/24 06:56 BP 113/71 12/05/24 06:56 Pulse Ox 100 12/05/24 06:56 FiO2 Intake & Output 12/04/24 12/05/24 12/05/24 18:59 06:59 18:59 Intake Total 440 1080 240 Output Total 850 Balance -410 1080 240 Intake: Oral 440 1080 240 Output: Drainage 850 Right Lower Abdomen 850 Other: Voiding Method Toilet # Voids 1 2 # Bowel Movements 1 - Labs CBC & Chem 7: 12/05/24 04:30 12/05/24 04:30 Labs: Abnormal Lab Results - Last 24 Hours (Table) 12/05/24 12/05/24 Range/Units 04:30 04:30 RBC 3.49 L (4.10-5.20) X 10*6/uL Hgb 11.0 L (12.0-15.0) g/dL Hct 33.9 L (37.2-46.3) % MCV 97.1 H (80.0-97.0) FL Eosinophils # 0.03 L (0.04-0.35) X 10*3/uL Carbon Dioxide 32.7 H (21.6-31.8) mmol/L BUN/Creatinine Ratio 31.86 H (12.00-20.00) Ratio Calcium 8.0 L (8.7-10.3) mg/dL
--- NOTE | 2024-12-05 11:38 | P.PN ---
Subjective Progress Note Date: 12/05/24 Hospital Course: Patient is a 64-year-old female with a history of metastatic ovarian cancer (not on chemotherapy or radiation), ascites with drain port, hypothyroidism comes to the ER with sudden onset of abdominal pain on the afternoon of 11/28/2024. Patient reports that she was at home when pain started which she describes a sharp like, 10 out of 10, nonradiating associated with some nausea. Patient never experienced abdominal pain of such severity in the past. Patient stated that she is on palliative care and has denied chemotherapy and radiation since she wants to maintain her current quality of life. Patient was diagnosed with ovarian cancer in January 2024. Patient follows up with oncologist Dr. Watkins at [facility]. Patient has recurrent episodes ascites because of metastatic ovarian cancer within 1 year. She has a right upper quadrant port for ascites since July 2024. Patient also has a Mediport on left upper chest since April 2024. Patient denies bloody or tarry colored stools. Patient reports unintentional weight loss and poor appetite since 1 year. Patient denies any chest pain, shortness of breath, numbness or tingling of the lower extremities. Patient reports improvement in her pain after decompression with NG tube and Dilaudid. Initial laboratory evaluation shows WBC 9.5, hemoglobin 11.8, hematocrit 26.6, MCV 97.9, platelet count 324, PT 10.1, INR 0.9, APTT 21.1, sodium 134, potassium 3.2, chloride 96, bicarb 26, BUN 16, creatinine 0.57, >EGFR,90), plus mi depigastric 0.8, calcium 7.0, total bili 0.5, AST 30, ALT 15, ALP 97, albumin 2.3, lipase 250 Urinalysis is positive for 2+ proteinuria, 1+ ketonuria CT of the abdomen and pelvis shows partial small bowel obstruction with decision point in the anterior abdomen near the midline; peritoneal carcinomatosis with mild to moderate ascites with right side percutaneous drainage catheter in place; anasarca Chest x-ray shows NG tube in place Vitals on arrival she was temperature 97.92 Fahrenheit, pulse rate 96, respiratory 18, blood pressure 117/75, oxygen saturation 99% on room air. Subjective: Patient seen and examined at the bedside. No acute events overnight. Patient has a 1 large bowel movement yesterday after soapsuds enema. Patient is having small amount of flatus. Patient is tolerating regular diet. Patient continued proving her symptoms. No abdominal pain, nausea or vomiting. Patient has concerns regarding her insurance so high school social studies tutor has been contacted. Anticipating discharge tomorrow. All Systems reviewed and pertinent positives and negatives noted in HPI, all other symptoms are negative Objective: Vital signs reviewed General: Ill-appearing, cachectic with generalized muscle wasting Derm: no unusual rashes/lesions, warm Head: atraumatic, normocephalic, symmetric Eyes: EOMI, no lid lag, anicteric sclera, pupils equal round reactive to light ENT: Nose and ears atraumatic Neck: No cervical lymphadenopathy, trachea midline, supple Mouth: no lip lesion, mucus membranes moist Cardiovascular: S1S2 reg, no murmur, positive dorsalis pedis pulse bilateral, no edema, Mediport clean dry and intact Lungs: CTA bilateral, no rhonchi, no rales, no accessory muscle use Abdominal: Soft with positive bowel sounds, no rebound tenderness. Right ascites catheter in place and intact Ext: muscle strength 5 out of 5 in all 4 extremities grossly, no gross muscle atrophy, no contractures, Neuro: CN II-XI grossly intact, no gross focal neuro deficits Psych: Alert, oriented, appropriate affect Data reviewed today: Pertinent Labs: WB WBC 7.32, hemoglobin 11.0, sodium 138, potassium 4.3, calcium 8.0 Images: No new imaging Assessment and Plan: #Abdominal pain secondary to partial small bowel obstruction status post decompression via NG tube #Constipation CT abdomen pelvis shows partial SBO and peritoneal carcinomatosis Patient has been able to tolerate liquids and soft diet Advance diet to regular diet Continue with p.o. Lasix 20 mg twice daily Dilaudid 2 mg IVP every 3 hours as needed, add Toradol 15 mg IVP every 6 hour as needed General Surgery on board, note reviewed, appreciate recs; to continue with lactulose #Metastatic ovarian cancer Consult oncology Home palliative care Contact high school social studies tutor Order CBC and BMP tomorrow a.m. Chronic conditions: #Hypothyroidism #Ascites #Insomnia Medications have been resumed DVT prophylaxis: Lovenox 40 subcu daily GI prophylaxis: Protonix 40 mg IV daily F: None E: Replete as needed N: N.p.o. A: Ambulatory at baseline CODE STATUS: No code Discussed with: Patient Anticipated discharge time and place: Tomorrow likely subacute rehab Dictation was produced using [employer] dictation software. Please excuse any grammatical, word or spelling errors. Attestation I have seen and examined this patient with my resident , discussed the same with the resident/NOLAN, and agree with the dictator's assessment and plan as written GENERAL: The patient is alert and oriented x3, not in any acute distress. Well developed, well nourished. HEENT: Pupils are round and equally reacting to light. EOMI. No scleral icterus. No conjunctival pallor. Normocephalic, atraumatic. No pharyngeal erythema. No thyromegaly. CARDIOVASCULAR: S1 and S2 present. No murmurs, rubs, or gallops. PULMONARY: Chest is clear to auscultation, no wheezing or crackles. ABDOMEN: Soft, nontender, nondistended, normoactive bowel sounds. No palpable organomegaly. Peritoneal catheter seen MUSCULOSKELETAL: No joint swelling or deformity. EXTREMITIES: No cyanosis, clubbing, or pedal edema. NEUROLOGICAL: Gross neurological examination did not reveal any focal deficits. SKIN: No rashes. Dr. Drake easton Objective - Vital Signs Vital signs: Vital Signs Temp 98.1 F 12/05/24 06:56 Pulse 77 12/05/24 06:56 Resp 16 12/05/24 06:56 BP 113/71 12/05/24 06:56 Pulse Ox 100 12/05/24 06:56 FiO2 Intake & Output 12/04/24 12/05/24 12/05/24 18:59 06:59 18:59 Intake Total 440 1080 240 Output Total 850 Balance -410 1080 240 Intake: Oral 440 1080 240 Output: Drainage 850 Right Lower Abdomen 850 Other: Voiding Method Toilet # Voids 1 2 # Bowel Movements 1 - Labs CBC & Chem 7: 12/06/24 06:00 12/06/24 06:00 Labs: Abnormal Lab Results - Last 24 Hours (Table) 12/05/24 12/05/24 Range/Units 04:30 04:30 RBC 3.49 L (4.10-5.20) X 10*6/uL Hgb 11.0 L (12.0-15.0) g/dL Hct 33.9 L (37.2-46.3) % MCV 97.1 H (80.0-97.0) FL Eosinophils # 0.03 L (0.04-0.35) X 10*3/uL Carbon Dioxide 32.7 H (21.6-31.8) mmol/L BUN/Creatinine Ratio 31.86 H (12.00-20.00) Ratio Calcium 8.0 L (8.7-10.3) mg/dL
[2024-12-05] MEDS: KETOROLAC 15 MG/ML 1 ML VIAL IVP PRN (14:26)
[2024-12-05] MEDS: HYDROmorphone 0.5 MG/0.5 ML SYRINGE IVP PRN (16:48)
[2024-12-06 07:43] VITALS: RESP 16
[2024-12-06 08:54] LABS: BUN/Creat Ratio 30.43 Ratio (12.00-20.00); Basophils # (A) 0.02 X 10*3/uL (0.00-0.10); Basophils % (A) 0.3 %; Blood Urea Nitrogen 21.3 mg/dL (9.0-27.0); Carbon Dioxide 30.3 mmol/L (21.6-31.8); Chloride 98 mmol/L (96-109); Eosinophils # (A) 0.03 X 10*3/uL (0.04-0.35); Eosinophils % (A) 0.4 %; Glucose 138 mg/dL (70-110); HCT 34.9 % (37.2-46.3); HGB 11.4 g/dL (12.0-15.0); Lymphocytes # (A) 1.41 X 10*3/uL (0.90-5.00); MCH 31.5 pg (27.0-32.0); MCHC 32.7 g/dL (32.0-37.0); MCV 96.4 FL (80.0-97.0); Mean Platelet Volume 10.6 FL (9.5-12.2); Monocytes % (A) 5.7 %; NRBC Per 100 WBC 0 X 10*3/uL (0.00-0.01); Neutrophils # (A) 5.14 X 10*3/uL (1.80-7.70); Neutrophils % (A) 72.9 %; Platelet Count 318 X 10*3/uL (140-440); Potassium 3.7 mmol/L (3.5-5.5); RBC 3.62 X 10*6/uL (4.10-5.20); RDW 12.6 % (11.5-14.5); Sodium 138 mmol/L (135-145); WBC 7.05 X 10*3/uL (4.50-10.00)
--- NOTE | 2024-12-06 10:32 | P.DS ---
Providers Date of admission: 11/29/24 04:51 Attending physician: Megan Price Consults: 11/29/24 11:11 Consult Physician Urgent Consulting Provider: Mo Watkins Consult Reason/Comments: Hx of Metastatic Ovarian cancer Do you want consulting provider notified?: Yes Primary care physician: Suly Munguia Hospital Course: Discharge Diagnosis: #Partial small bowel obstruction status post decompression with NG tube, resolved #Constipation #Metastatic ovarian cancer Hospital Course: Patient is a 64-year-old female with a history of metastatic ovarian cancer (not on chemotherapy or radiation), ascites with drain port, hypothyroidism comes to the ER with sudden onset of abdominal pain on the afternoon of 11/28/2024. Patient reports that she was at home when pain started which she describes a sharp like, 10 out of 10, nonradiating associated with some nausea. Patient never experienced abdominal pain of such severity in the past. Patient stated that she is on palliative care and has denied chemotherapy and radiation since she wants to maintain her current quality of life. Patient was diagnosed with ovarian cancer in January 2024. Patient follows up with oncologist Dr. Watkins at [facility]. Patient has recurrent episodes ascites because of metastatic ovarian cancer within 1 year. She has a right upper quadrant port for ascites since July 2024. Patient also has a Mediport on left upper chest since April 2024. Patient denies bloody or tarry colored stools. Patient reports unintentional weight loss and poor appetite since 1 year. Patient denies any chest pain, shortness of breath, numbness or tingling of the lower extremities. Initial laboratory evaluation shows WBC 9.5, hemoglobin 11.8, hematocrit 26.6, MCV 97.9, platelet count 324, PT 10.1, INR 0.9, APTT 21.1, sodium 134, potassium 3.2, chloride 96, bicarb 26, BUN 16, creatinine 0.57, >EGFR,90), plus midepigastric 0.8, calcium 7.0, total bili 0.5, AST 30, ALT 15, ALP 97, albumin 2.3, lipase 250 CT of the abdomen and pelvis shows partial small bowel obstruction with decision point in the anterior abdomen near the midline; peritoneal carcinomatosis with mild to moderate ascites with right side percutaneous drainage catheter in place; anasarca General surgery and oncology following patient. Patient reports improvement in her pain after decompression with NG tube and Dilaudid. NG tube was removed 3 days after her admission. She continued to improving her symptoms. Tolerating diet and has bowel movements. Patient is medically optimized and stable for discharge. Patient to follow-up with her PCP and oncologist post hospital discharge. No new medications have been added. Patient to continue with her regular home meds as directed. Discharge disposition: Home with home care Vital signs reviewed. General: Ill-appearing, cachectic with generalized muscle wasting Derm: no unusual rashes/lesions, warm Head: atraumatic, normocephalic, symmetric Eyes: EOMI, no lid lag, anicteric sclera, pupils equal round reactive to light ENT: Nose and ears atraumatic Neck: No cervical lymphadenopathy, trachea midline, supple Mouth: no lip lesion, mucus membranes moist Cardiovascular: S1S2 reg, no murmur, positive dorsalis pedis pulse bilateral, no edema, Mediport clean dry and intact Lungs: CTA bilateral, no rhonchi, no rales, no accessory muscle use Abdominal: Soft with positive bowel sounds, no rebound tenderness. Right ascites catheter in place and intact Ext: muscle strength 5 out of 5 in all 4 extremities grossly, no gross muscle atrophy, no contractures, Neuro: CN II-XI grossly intact, no gross focal neuro deficits Psych: Alert, oriented, appropriate affect Dictation was produced using [employer] dictation software. Please excuse any grammatical, word or spelling errors. Attestation I have seen and examined this patient with my resident , discussed the same with the resident/NOLAN, and agree with the dictator's assessment and plan as written Dr. Drake easton Plan - Discharge Summary Discharge Rx Participant: Yes New Discharge Prescriptions: Continue Thyroid,Pork [[place] Thyroid] 120 mg PO DAILY 30 Days #30 Spironolactone [Aldactone] 25 mg PO DAILY Furosemide [Lasix] 20 mg PO BID PRN PRN Reason: Edema Levothyroxine Sodium [Synthroid] 88 mcg PO DAILY HYDROmorphone [Dilaudid] 4 mg PO TID Cholecalciferol (Vitamin D3) [Vitamin D3 (1250 Mcg = 50,000 Iu)] 1,250 mcg PO Q7D Calcium Carbonate [Tums] 500 mg PO DAILY traMADol HCL 50 mg PO TID Famotidine [Pepcid] 20 mg PO DAILY Lactulose [Cephulac] 20 gm PO BID #360 ml modafiniL [Provigil] 200 mg PO DAILY Cyanocobalamin [Vitamin B-12 Injection] 1,000 mcg SQ Q7D Discharge Medication List traMADol HCL 50 mg PO TID 03/08/23 [History] Thyroid,Pork [[place] Thyroid] 120 mg PO DAILY 30 Days #30 03/10/23 [Rx] Famotidine [Pepcid] 20 mg PO DAILY 10/19/24 [History] Furosemide [Lasix] 20 mg PO BID PRN 10/19/24 [History] Spironolactone [Aldactone] 25 mg PO DAILY 10/19/24 [History] Lactulose [Cephulac] 20 gm PO BID #360 ml 10/23/24 [Rx] Calcium Carbonate [Tums] 500 mg PO DAILY 11/29/24 [History] Cholecalciferol (Vitamin D3) [Vitamin D3 (1250 Mcg = 50,000 Iu)] 1,250 mcg PO Q7D 11/29/24 [History] Cyanocobalamin [Vitamin B-12 Injection] 1,000 mcg SQ Q7D 11/29/24 [History] HYDROmorphone [Dilaudid] 4 mg PO TID 11/29/24 [History] Levothyroxine Sodium [Synthroid] 88 mcg PO DAILY 11/29/24 [History] modafiniL [Provigil] 200 mg PO DAILY 11/29/24 [History] Follow up Appointment(s)/Referral(s): [facility], [NON-STAFF] - 1-2 Days (resumption of care. Will call to setup appointment. ) Debra Watkins MD [STAFF PHYSICIAN] - 12/13/24 2:30 pm (this is a lab encounter) Suly Munguia DO [Primary Care Provider] - 12/13/24 1:30 pm Patient Instructions/Handouts: Bowel Obstruction (DC) Activity/Diet/Wound Care/Special Instructions: Please follow-up with your PCP and oncologist within 1 to 2 weeks. Discharge Disposition: HOME WITH HOME HEALTH SERVICES
[2024-12-06 11:58] VITALS: BP 119/72; PULSE 78; TEMP 98.2
[2024-12-06] MEDS: traMADol 50 MG TAB PO PRN (15:23)
== END 2024-12-06 18:37 | disposition home health service (06) | DRG 389 ==
LOC: EC 21:07 → 5NMEDONC 11-29 04:50 → OBSVTOIN 11-29 04:51 → 5NMEDONC 11-29 06:38
PROVIDERS: ADMIT Hospitalist; ATTEND Hospitalist
PROC: 0D9670Z Drainage of Stomach with Drainage Device, Via Natural or Artificial Opening (ICD-10-PCS; principal; 2024-11-29)
DX: K56.690 Other partial intestinal obstruction (principal); C56.9 Malignant neoplasm of unspecified ovary; R18.0 Malignant ascites; Z51.5 Encounter for palliative care; C78.6 Secondary malignant neoplasm of retroperitoneum and peritoneum; F31.9 Bipolar disorder, unspecified; E06.3 Autoimmune thyroiditis; K59.00 Constipation, unspecified; Z66 Do not resuscitate; F41.9 Anxiety disorder, unspecified; G47.00 Insomnia, unspecified; G89.29 Other chronic pain; N93.9 Abnormal uterine and vaginal bleeding, unspecified; N95.1 Menopausal and female climacteric states; Z79.890 Hormone replacement therapy; Z79.899 Other long term (current) drug therapy; Z88.8 Allergy status to other drugs, medicaments and biological substances
CPT/HCPCS: 36415; 74177; 80048; 80053; 81001; 82150; 83605; 83690; 83735; 85025; 85610; 85730; 86850; 86900; 86901; 96361; 96374; 96375; 96376; 99285